=== PATIENT | male | born 1990 | race Caucasian/White ===

== ENCOUNTER 2024-05-15 16:59 | Emergency (ER) | payer MEDICARE, SELFPAY ==
[2024-05-15 17:02] VITALS: BMI 26.5
--- NOTE | 2024-05-15 17:04 | PD.EDOVER ---
ED Overdose RME/HPI General Chief Complaint: Overdose Stated Complaint: OVER DOSE Time Seen by Provider: 05/15/24 17:30 Arrival date/time: 05/15/24 16:59 Limitations: no limitations RME / HPI RME / HPI Narrative: 33 year old male presented to the ED BIBA from home for overdose today. Per medics and PPD, the patient was found in his ex-'s home, in a backroom unconscious for an unknown amount of time. Patient evidently has known history of polysubstance abuse (methamphetamine, cocaine, and alcohol). Per medics, on scene patient was altered, GCS of 5, occasionally having spasms, and only responsive to painful stimuli. NPA airway used and bagged via BVM, saturating 100%. Per medics, patient given 5 rounds of Narcan (two 2mg IN and three 4mg (2xIN 1xIV). State the patient would only momentarily respond to Narcan and return to GCS of 5. No vomiting reported. Per medics 12-lead EKG performed en route and unremarkable, prehospital BS 130, blood pressure 134/68. Per PPD, patient was last seen by ex- 1 week ago. Related Data Home Medications ?Medication ?Instructions ?Recorded ?Confirmed sertraline 50 mg tablet (Zoloft) 50 mg PO HS 05/24/20 06/30/20 allopurinol 300 mg tablet 300 mg BID 06/30/20 06/30/20 buspirone 10 mg tablet 10 mg PO BID 06/30/20 06/30/20 Previous Rx's ?Medication ?Instructions ?Recorded amoxicillin 875 mg-potassium 1 tab PO Q12H #20 tabs 11/07/20 clavulanate 125 mg tablet (Augmentin) ibuprofen 800 mg tablet 800 mg PO Q8H PRN pain #30 tabs 11/07/20 Allergies Allergy/AdvReac Type Severity Reaction Status Date / Time ketorolac AdvReac Severe HEADACHE Verified 05/15/24 17:44 Review of Systems Review of Systems ROS Unobtainable: unobtainable due to mental status Past Medical History Past Medical History NEUROLOGIC: Positive Neurological Disorders and Seizures MUSCULOSKELETAL: Positive Musculoskeletal Disorders, Arthritis and Gout 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) PSYCHO/SOCIAL: Positive Schizophrenia, Recreational Drug Use (COCAINE, THC), Bipolar Disorder, Depression, Anxiety and Behavior Problems OTHER HISTORY: Positive Falls and MRSA Family History FAMILY HISTORY: Positive Family Cancer Social History SMOKING STATUS: Never smoker SUBSTANCE USE: unknown ED Exam General Limitations: Present no limitations General appearance: Present obtunded and other (eyes are rolled back as if having a seizure, no gag reflex ) Head Head exam: Present atraumatic, normocephalic and normal inspection Eye Eye exam: Present PERRL and other (eyes are rolled back as if having a seizure) ENT ENT exam: Present mucous membranes moist and other (No gag reflex) Neck Neck exam: Present normal inspection, full ROM and trachea midline Chest Chest inspection: Present normal inspection and symmetric chest wall rise Respiratory Respiratory exam: Present other (breath sounds slightly decreased ) Cardiovascular Cardiovascular exam: Present tachycardia and normal heart sounds Abdominal Exam Abdominal exam: Present soft and normal bowel sounds exam: Present other (uncircumcised, no edema ) Extremities Exam Extremities exam: Present normal inspection Back Exam Back exam: Present normal inspection Neurological Exam Neurological exam: Present other (obtunded, no gag reflex, eyes are rolled back as if having a seizure, not responding, moving all extremities a small amount. ) Skin Skin exam: Present warm, dry, intact, normal color and rash (patch of rash on abdomen ) Course Course Course Narrative: 1728: Code freeman called overhead, patient moving and not cooperating with staff. Ordered Geodon. 1800: Patient signed out to Dr. Sinclair pending work-up and final disposition. Quality Measures none Orders Category Date Time Status Bedside Blood Glucose Q6HR Care 05/15/24 17:31 Active Solar Energy Specialist NOW Care 05/15/24 17:31 Active Continuous Pulse Oximetry NOW Care 05/15/24 17:31 Active EKG (ED ONLY) *Do not use* NOW Care 05/15/24 17:31 Active Insert IV NOW Care 05/15/24 17:31 Active One-to-one observation NOW Care 05/15/24 17:31 Active EKG (ED Only) Stat Exams 05/15/24 17:31 Ordered Acetaminophen Stat Lab 05/15/24 17:32 Ordered Alcohol, Blood Medical Stat Lab 05/15/24 17:32 Ordered Alcohol, Urine Stat Lab 05/15/24 17:34 Ordered CBC Stat Lab 05/15/24 17:32 Ordered Comprehensive Metabolic Panel Stat Lab 05/15/24 17:32 Ordered Drug Screen,Urine Stat Lab 05/15/24 17:34 Ordered Urinalysis Stat Lab 05/15/24 17:34 Ordered Etomidate Inj [Amidate Inj] Med 05/15/24 16:52 Discontinued 20 mg .ROUTE .STK-MED ONE Etomidate Inj [Amidate Inj] Med 05/15/24 17:09 Discontinued 20 mg .ROUTE .STK-MED ONE LORazepam [Ativan Inj] Med 05/15/24 17:31 Discontinued 1 mg IV X1 ONE Sodium Chloride 0.9% 1000 ml [Ns] 1,000 ml Med 05/15/24 17:31 Active IV X1 Succinylcholine Inj [Anectine Inj] Med 05/15/24 16:52 Discontinued 200 mg .ROUTE .STK-MED ONE Ziprasidone Inj [Geodon Inj] Med 05/15/24 17:45 Discontinued 20 mg IM X1 ONE Oxygen Delivery NOW RT 05/15/24 17:31 Active Vital Signs Vital signs: Vital Signs Temperature 98.2 F 05/15/24 18:08 Pulse Rate 140 H 05/15/24 18:08 Respiratory Rate 20 05/15/24 18:08 Blood Pressure 184/107 H 05/15/24 18:08 Pulse Oximetry (%) 95 05/15/24 18:08 Oxygen Delivery Method Room Air 05/15/24 18:08 Pulse ox is 95% on room air which is adequate. Overdose MDM Narrative MDM Narrative:: Malaika Pablo am scribing for and in the presence of Dr. Edwards. 33 year old male with a known history of polysubstance abuse (methamphetamine, cocaine, and alcohol), who was brought in by EMS following an overdose. On scene, he was found unconscious in his ex-'s home, with a GCS of 5, altered mental status, occasional spasms, and only responsive to painful stimuli. He was administered a total of five rounds of Narcan (2mg IN x2, 4mg IN x2, and 4mg IV x1), which temporarily improved his status, but he continued to return to a GCS of 5. Given the lack of sustained response to Narcan, the overdose may involve a mixed substance ingestion, with a potential for stimulant toxicity or other substances contributing to his presentation. The patient?s prehospital vital signs were stable, with a blood pressure of 134/68, and a blood glucose of 130. A 12-lead EKG performed en route was unremarkable. The patient?s airway was managed with NPA and BVM ventilation, maintaining 100% oxygen saturation. Considering the patient's history of substance abuse, altered mental status, and temporary response to Narcan, the differential diagnosis includes opioid overdose with potential concurrent stimulant use. Further management will include continued monitoring, repeat Narcan administration as needed, and consideration of additional toxicology screening. Given his altered mental status, the patient will require close observation for further deterioration and any signs of withdrawal or additional complications. Patient data External records reviewed:: [facility] previous records (I reviewed ED visit on 12/13/2022 for cocaine abuse ) and EMS form Clinical information provided by:: EMS and law enforcement (PPD) Social determinants that could affect healthcare access:: substance use Patient has the following chronic illnesses:: polysubstance abuse (methamphetamine, cocaine, and alcohol) How is presenting disease/condition affected by chronic disease/condition?: exacerbated by Evaluation data The following diagnostics were reviewed and interpreted by me:: other (specify) (No diagnostics resulted prior to sign out ) Lab and/or radiology exams considered but not ordered:: None Interpretation Summary: N/A Medications / Prescriptions Medications or Prescriptions considered but not ordered:: None Medication administrations:: Medication Administration History Sodium Chloride (Ns) 1,000 mls @ 999 mls/hr IV X1 ONE Stop: 05/15/24 18:31 Last Admin: 05/15/24 18:15 Dose: 999 mls/hr Documented By: DILLAN Discontinued Medications Etomidate (Etomidate Inj 2 Mg/Ml Vial 10 Ml) Confirm Administered Dose 20 mg .ROUTE .STK-MED ONE Stop: 05/15/24 16:53 Last Admin: 05/15/24 17:48 Dose: 20 mg Documented By: DILLAN Etomidate (Etomidate Inj 2 Mg/Ml Vial 10 Ml) Confirm Administered Dose 20 mg .ROUTE .STK-MED ONE Stop: 05/15/24 17:10 Last Admin: 05/15/24 17:48 Dose: 20 mg Documented By: DILLAN Lorazepam (Lorazepam 2 Mg/Ml Vial) 1 mg IV X1 ONE Stop: 05/15/24 17:32 Succinylcholine Chloride (Succinylcholine Inj 20 Mg/Ml Vial 10 Ml) Confirm Administered Dose 200 mg .ROUTE .STK-MED ONE Stop: 05/15/24 16:53 Last Admin: 05/15/24 17:48 Dose: 200 mg Documented By: DILLAN Ziprasidone (Ziprasidone Inj 20 Mg/Ml Vial (Non-Formulary)) 20 mg IM X1 ONE Stop: 05/15/24 17:46 Last Admin: 05/15/24 17:51 Dose: 20 mg Documented By: DILLAN See above Consultations Consultation(s) initiated? (list below): No Diagnosis Overdose Differential Diagnosis: cocaine intoxication, suicide attempt by multiple drug overdose, drug overdose and other (methamphetamine abuse ) Most likely diagnosis given after review of the tests above:: Overdose Admission Indicated Admission indicated?: not indicated Explain why admission is indicated or not indicated:: Patient signed out to Dr. Sinclair pending work up and final disposition. Admission Request Was there a request for admission?: No Disposition Plan Disposition Plan: other (specify) (Signed out to Dr. Sinclair. ) Discharge Plan Prescriptions/Referrals Prescriptions/Med Rec: No Action amoxicillin-pot clavulanate [Augmentin] 875-125 mg tablet 1 tab PO Q12H Qty: 20 0RF ibuprofen 800 mg tablet 800 mg PO Q8H PRN (Reason: pain) Qty: 30 0RF sertraline [Zoloft] 50 mg Tablet 50 mg PO HS buspirone 10 mg tablet 10 mg PO BID Patient Comments: TAKE ONE TABLET BY MOUTH TWICE DAILY allopurinol 300 mg tablet 300 mg BID Patient Comments: TAKE ONE TABLET BY MOUTH TWICE DAILY Referrals: No Primary/Family,Physician [Primary Care Provider] - In 1 week Problem List Clinical Impression: Drug overdose Patient/Caregiver Discharge Instructions Print Language: Maori
--- NOTE | 2024-05-15 17:31 | EKG_ITS ---
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
[2024-05-15] MEDS: ETOMIDATE INJ 2 MG/ML VIAL 10 ML 15 MG IVP ×2 (17:45→17:55)
[2024-05-15] MEDS: SUCCINYLCHOLINE INJ 20 MG/ML VIAL 10 ML 80 MG IV (17:45)
[2024-05-15] MEDS: ZIPRASIDONE INJ 20 MG/ML VIAL (NON-FORMULARY) IM (17:51)
[2024-05-15 18:08] VITALS: BP 184/107; PULSE 140; RESP 20; TEMP 36.8; O2SAT 95
[2024-05-15] MEDS: SODIUM CHLORIDE 0.9% 1000 ML 1,000 ML 999 ML IV ×2 (18:15→19:49)
--- NOTE | 2024-05-15 18:15 | PD.EDADDENDU ---
Emergency Room Addendum Addendum Narrative: 1814: Care assumed from Dr. Edwards, the previous shift emergency physician. Past medical, surgical, social and family history reviewed. Vitals and home medications reviewed. Results and treatment plan discussed. I will assume the care of the patient at this time and will follow the patient, pending work-up. Please refer to the emergency department record for history and examination from initial visit. 183: Per PPD, they were summoned on scene due to a possible overdose. Family on scene took pictures of how they found the patient prior to moving him out of the bedroom. PPD states the patient has laying off the mattress [facility] with his hands somewhat wrapped behind his back. They found a small empty container in his pocket, but they are not sure what was in it. Patient states he went to go lay down after taking a shower and does not remember what happened after. He endorses using cocaine today. He reports having left knee pain and diffuse back pain. On exam, patient has erythema overlying the left patella. Work-up is pending at this time. 185: Blood pressure is 124/102 with a HR of 87. Patient is resting comfortably at this time. CXR shows normal cardiac silhouette, normal sharp diaphragmatic edge, no infiltrates, normal costophrenic angles, according to my interpretation. EKG done at 181, NSR, rate of 95, normal axis, no ectopy, no acute ischemia, according to my interpretation. WBC count is normal, HnH is 17.9/50.5, PT and INR are normal, ABG is normal, Ammonia is normal at 13, Blood Alcohol is negative, UDS is positive for cocaine, according to my interpretation. At 1730, I was notified that our CT machine is down. Patient will be transferred by ambulance across the street where there is another CT machine. I had asked our biomedical electronics technician to call administration and go on diversion and he said no. CT head and cervical spine scans were ordered at 183 and are pending. 0111: Patient's symptoms have resolved. Patient is stable to be discharged. RADIOLOGY RESULTS: [facility] Preliminary Report Draft Patient: JENNIFER GARCIA [facility]. Record#: [id number] Birthdate: 1990 Age/Sex: 33 / M Location: [facility] Attending Dr: Ordering Physician: Date of Service: Procedure(s): Accession Number(s): cc: ~ CT scan of the head without intravenous contrast (axial sections with sagittal and coronal reformats). May 15, 2024 at 2347 hours Clinical History: Altered mental status Comparison: No prior study is available for comparison. Findings: No evidence of intracranial hemorrhage, mass effect or midline shift. The ventricles and CSF spaces are unremarkable. The calvarium is unremarkable. There is moderate mucosal thickening in the both ethmoid sinus. The mastoid air cells and the other visualized paranasal sinuses are clear. Impression: No evidence of intracranial hemorrhage, mass effect or midline shift. Other findings as described above. Report Electronically Signed By: Chago Kuhn 05/16/2024 12:33:29 AM [facility] Preliminary Report Draft Patient: JENNIFER GARCIA. Record#: [id number] Birthdate: 1990 Age/Sex: 33 / M Location: [facility] Attending Dr: Ordering Physician: Date of Service: Procedure(s): Accession Number(s): cc: ~ CT scan of the cervical spine without intravenous contrast (axial sections with sagittal and coronal reformats). May 15, 2024 at 2343 hours Clinical History: Altered mental status. Comparison: No prior study is available for comparison. Findings: There is no fracture or traumatic subluxation. There is straightening of the cervical lordosis, which may be due to muscle spasm or patient position. The prevertebral soft tissues are unremarkable. Impression: No evidence of fracture or traumatic subluxation. Report Electronically Signed By: Chago Kuhn 05/16/2024 12:34:52 AM
[2024-05-15] MEDS: LORazepam 2 MG/ML VIAL 1 MG IV (18:20)
--- NOTE | 2024-05-15 18:39 | XR_ITS ---
Examination: CT cervical spine without contrast 2-D sagittal reconstructions 2-D coronal reconstructions 3-D reconstructions. Exam date and time:May 15, 2024 1143 hours INDICATIONS: Altered mental status with neck pain today CTDI:vol (mGy) 13.5 DLP: (mGycm) 321 Technique: Multiple 2 mm axial sections of the cervical spine have been obtained. The coronal and sagittal reconstructions have been obtained. 3-D reconstructions have been obtained. Low dose protocols were performed. One or more of the following dose reduction techniques were used; automated exposure control, adjustment of the mA and/or KV according to patient size, use of iterative reconstruction technique. Findings: Axial sections demonstrate intact base of the skull. C1 exhibit satisfactory relationship to the odontoid. No acute cervical vertebral body fracture seen. Alignment posterior spinous processes satisfactory. Impression: No acute cervical fracture.
--- NOTE | 2024-05-15 18:42 | XR_ITS ---
Examination: CT brain head without contrast. 2-D sagittal coronal reconstructions Date and time of exam:May 15, 2024 1147 hours INDICATIONS: Onset dizziness headaches today CTDI: vol (mGy):49.5 DLP: (mGycm):925 Technique: Multiple CT axial sections of the brain have been obtained, 5 mm slice thickness. Contrast has not been administered. 2-D sagittal, coronal reconstructions have been obtained Low dose protocols were performed. One or more of the following dose reduction techniques were used; automated exposure control, adjustment of the mA and/or KV according to patient size, use of iterative reconstruction technique. Findings: No significant ventricular enlargement. Intra-axial or extra-axial hemorrhage density is not seen. No mass effect or midline shift Basal cisterns are not remarkable. Fourth ventricle is midline. Cranial vault intact. Significant ethmoid maxillary antral sinusitis Impression: Negative for acute hemorrhage, mass effect or midline shift Advise clinical correlation follow-up accordingly
[2024-05-15 18:43] LABS: Basophils % (Auto) 1 % (0-2.5); Eosinophils # (Auto) 0.1 Thou/mm3 (0.0-0.5); Eosinophils % (Auto) 1 % (0-10); Hematocrit 50.5 % (41.0-53.0); Hemoglobin 17.9 g/dL (13.5-16.0); Immature Granulocytes % (Auto) 0 % (0-0); Immature Granulocytes Auto 0.03 Thou/mm3 (0.00-0.00); Lymphocytes % (Auto) 11 % (10-50); Mean Corpuscular HGB Conc 35.4 g/dl (31.0-37.0); Mean Corpuscular Hemoglobin 28.8 pg (25.0-35.0); Mean Corpuscular Volume 81 fL (80-100); Monocytes # (Auto) 0.4 Thou/mm3 (0.0-0.8); Monocytes % (Auto) 5 % (0-12); Neutrophils # (Auto) 7.1 Thou/mm3 (1.8-7.7); Neutrophils % (Auto) 82 % (37-80); Nucleated Red Blood Cell % 0 /100 WBC (0); Platelet Count 325 Thou/mm3 (140-440); RDW Standard Deviation 36.4 fL (35.1-43.9); Red Blood Count 6.21 Miln/mm3 (4.50-5.90); White Blood Count 8.7 Thou/mm3 (3.8-10.6)
--- NOTE | 2024-05-15 18:45 | XR_ITS ---
EXAMINATION: AP chest single view TECHNIQUE: AP portable upright chest single view Exam date and time: May 15, 2024 1856 hours Comparison December 13, 2022 INDICATIONS: Altered mental status, coughing today FINDINGS: Normal heart size Suspicious for early pneumonia right base Intact osseous structures. IMPRESSION: Suspicious for early pneumonia right base, clinical correlation advised.
[2024-05-15 18:48] VITALS: BP 124/102; PULSE 88; RESP 17; O2SAT 97
[2024-05-15 19:02] LABS: Partial Thromboplastin Time 23.9 Seconds (22.0-36.0)
[2024-05-15 19:12] VITALS: PULSE 89
[2024-05-15 19:26] LABS: Ammonia 13 uMol/L (11-32)
[2024-05-15 19:31] VITALS: PULSE 81; RESP 13; RESP 93
[2024-05-15 19:32] LABS: Base Excess 1 (-3-3); HCO3 26 mEq/L (20-26); Inspired Oxygen, FIO2 21 %; O2 Saturation 95 % (91-98); PCO2 44 mmHg (32.0-48.0); PO2 74 mmHg (83-108); pH, Arterial 7.39 (7.35-7.45)
[2024-05-15 19:34] LABS: Allen Test Performed/OK; Puncture Site Right Radial
--- NOTE | 2024-05-15 19:46 | PC.NURSE ---
Charge nurse Rhys KIMBROUGH aware that patient has a order for a one to one. Per Rhys RN patient does not need a sitter at this time.
[2024-05-15 20:43] LABS: Acetaminophen 7.3 mcg/mL (10.0-20.0); Alanine Aminotransferase 23 U/L (10-49); Albumin, Serum 5.1 gm/dL (3.5-5.0); Albumin/Globulin Ratio 1.8 (1.2-2.2); Alcohol, Blood Medical < 3.0 mg/dL (0-10.0); Alkaline Phosphatase 123 U/L (46-116); Anion Gap 12 (7-16); Aspartate Amino Transferase 39 U/L (0-34); BUN/Creatinine Ratio 9 Ratio (12-20); Bilirubin,Total 2.3 mg/dL (0.3-1.2); Blood Urea Nitrogen 10 mg/dL (9-23); Calcium 10.1 mg/dL (8.3-10.6); Calcium (Corrected) 10.1 mg/dL (8.5-10.1); Carbon Dioxide 26.6 mMol/L (20.0-31.0); Chloride 99 mMol/L (98-107); Creatinine (Component) 1.1 mg/dL (0.6-1.3); Estimated Creatinine Clearance 78.3 mL/min (>60); Free T4 (Free Thyroxine) 1.57 ng/dL (0.89-1.76); Globulin 2.8 gm/dL (2.3-3.5); Glucose 141 mg/dL (74-106); Magnesium 2.1 mg/dL (1.6-2.6); Osmolality,Calculated 276 (275-295); Potassium 3.4 mMol/L (3.4-5.1); Salicylate < 3.0 mg/dL; Sodium 138 mMol/L (136-145); Thyroid Stimulating Hormone 0.63 uIU/mL (0.55-4.78); Total Protein 7.9 gm/dL (5.7-8.2); Troponin I < 0.020 ng/mL (0.0-0.045); eGFR > 60 See Note
[2024-05-15 21:55] LABS: Collection Type, Urine Catheter; Squamous Epithelial Cell,Urine 0 /hpf (0-5)
[2024-05-15 22:24] VITALS: BP 93/60; PULSE 76; RESP 18; TEMP 37.1; O2SAT 95
[2024-05-15 22:39] LABS: Bilirubin,Urine Negative (Negative); Blood,Urine Negative (Negative); Clarity,Urine Clear (Clear/Hazy); Color,Urine Lt-Yellow (Lt Yel-Yel); Glucose, Urine Negative (Negative); Ketones,Urine Trace (Negative); Leukocyte Esterase,Urine Negative (Negative); Nitrite,Urine Negative (Negative); PH,Urine 6.5 (5.0-7.0); Protein,Urine Negative (Neg - Trace); RBC,Urine 1 /hpf (0-3); Specific Gravity,Urine 1.011 (1.001-1.035); Urobilinogen,Urine Negative mg/dL (0.0-1.0); WBC,Urine 1 /hpf (0-5)
[2024-05-15 23:07] LABS: Amphetamine/Methamp Scrn,U Negative (Negative); Barbiturate Screen,Urine Negative (Negative); Benzodiazepines Screen,Urine Negative (Negative); Benzoylecgonine Screen, Ur Positive (Negative); Fentanyl Screen,Urine Negative (Negative); Opiate Screen,Urine Negative (Negative); THC Screen,Urine Negative (Negative)
--- NOTE | 2024-05-16 00:34 | PRELIM_ITS ---
CT scan of the head without intravenous contrast (axial sections with sagittal and coronal reformats). May 15, 2024 at 2347 hours Clinical History: Altered mental status Comparison: No prior study is available for comparison. Findings: No evidence of intracranial hemorrhage, mass effect or midline shift. The ventricles and CSF spaces are unremarkable. The calvarium is unremarkable. There is moderate mucosal thickening in the both ethmoid sinus. The mastoid air cells and the other visualized paranasal sinuses are clear. Impression: No evidence of intracranial hemorrhage, mass effect or midline shift. Other findings as described above. Report Electronically Signed By: Chago Kuhn 05/16/2024 12:33:29 AM [EST]
--- NOTE | 2024-05-16 00:35 | PRELIM_ITS ---
CT scan of the cervical spine without intravenous contrast (axial sections with sagittal and coronal reformats). May 15, 2024 at 2343 hours Clinical History: Altered mental status. Comparison: No prior study is available for comparison. Findings: There is no fracture or traumatic subluxation. There is straightening of the cervical lordosis, which may be due to muscle spasm or patient position. The prevertebral soft tissues are unremarkable. Impression: No evidence of fracture or traumatic subluxation. Report Electronically Signed By: Chago Kuhn 05/16/2024 12:34:52 AM [EST]
[2024-05-16] MEDS: ACETAMINOPHEN 500 MG TABLET 1000 MG PO (00:54)
[2024-05-16 00:55] VITALS: BP 115/83; PULSE 99; RESP 16; TEMP 36.7; O2SAT 95
== END 2024-05-16 01:25 | disposition home or self-care (01) ==
PROVIDERS: Family Medicine; Emergency Provider Emergency Medicine
DX: T65.91XA Toxic effect of unspecified substance, accidental (unintentional), initial encounter (principal); M25.562 Pain in left knee; M54.9 Dorsalgia, unspecified; F14.10 Cocaine abuse, uncomplicated; F19.11 Other psychoactive substance abuse, in remission
CPT/HCPCS: 36415; 36600; 70450; 71045; 72125; 80053; 80307; 80320; 80329; 81001; 82140; 82803; 83735; 84439; 84443; 84484; 85025; 85610; 85730; 93005; 96127; 96360; 96361; 96372; 99284; J0330; J2060; J3486; J3490; J7030; A9270; G0480

== ENCOUNTER 2024-05-22 01:15 | Emergency (ER) | payer MEDICARE, MEDICAID, SELFPAY ==
[2024-05-22] VITALS (11 sets, daily range): BP systolic 98–172; BP diastolic 59–92; PULSE 82–155; RESP 12–94; TEMP 36.3–38.9; O2SAT 93–97; BMI 32.2
--- NOTE | 2024-05-22 01:27 | PD.EDPSYCH ---
ED Psych RME/HPI General Chief Complaint: Psychiatric Symptoms Stated Complaint: MENTAL EVALUATION Time Seen by Provider: 05/22/24 01:36 Arrival date/time: 05/22/24 01:15 RME / HPI RME / HPI Narrative: This section includes all my notes and documentations, including HPI, PE, and ED course. Nikolay Buckley MD HPI: 33yo male BIB PPD presents to the ED for on a 5150 hold. Per PPD, patient was in his motel room when he started throwing things out the window and was running around completely naked. They state the patient hasn't been able to answer questions while in their custody and were concerned for his wellbeing. So they placed him on a psychiatric hold. No other complaints reported. ROS: Can't obtain from the patient due to current clinical condition. Physical Exam: General: Patient is awake but not oriented. No purposeful eye contact. Constant nonpurposeful movements and gyrations. Fever noted. High BP noted. Eyes: Conjunctivae and lids clear. PERRL. EOMI. Neck:? Supple.? No tenderness. Heart: Severe sinus tachycardia noted (150 bpm). Lungs:? No respiratory distress.? Good air movement.? No rhonchi, wheezing, rales.?? Chest:? No tenderness. Abdomen:? Soft and nontender.? Normal bowel sounds.? No distension.? No rebound or guarding.?? Back:? No tenderness.?? Legs:? No clubbing, cyanosis, edema.? Skin:? Warm and dry.??Multiple ecchymoses and skin abrasions scattered diffusely, varying size and shape and age. Neuro:? Cranial Nerves II-XII grossly intact.? No peripheral motor deficits. Musculoskeletal:? All major joints and bones are not tender with no limited ROM.? I reviewed all diagnostic test results. My interpretation of the EKG is sinus tachycardia with no acute ST?T changes. My interpretation of the chest x-ray is no acute findings, official radiology report is pending. Blood tests and urine tests remarkable for WBC 13.5, lactic acid 6.6, CK 3147, and UDS positive for cocaine. COVID/influenza negative. Head CT and cervical spine CT and chest/abdomen/pelvis CT pending. At this point, diagnoses include rhabdomyolysis, AMS, and cocaine intoxication. Treatment included 3 L IV fluid, Zofran, lorazepam 2 mg IV, Haldol 5 mg IV, Haldol 10 mg IM, Benadryl 50 mg IV, Toradol 30 mg IV, Tylenol 1000 mg IV, metoprolol 5 mg IV, and Rocephin 1 g IV. Nikolay Buckley MD Related Data Home Medications ?Medication ?Instructions ?Recorded ?Confirmed sertraline 50 mg tablet (Zoloft) 50 mg PO HS 05/24/20 06/30/20 allopurinol 300 mg tablet 300 mg BID 06/30/20 06/30/20 buspirone 10 mg tablet 10 mg PO BID 06/30/20 06/30/20 Previous Rx's ?Medication ?Instructions ?Recorded amoxicillin 875 mg-potassium 1 tab PO Q12H #20 tabs 11/07/20 clavulanate 125 mg tablet (Augmentin) ibuprofen 800 mg tablet 800 mg PO Q8H PRN pain #30 tabs 11/07/20 Allergies Allergy/AdvReac Type Severity Reaction Status Date / Time ketorolac AdvReac Severe HEADACHE Verified 05/15/24 17:44 Review of Systems Review of Systems Systems Reviewed: All systems reviewed, normal except as documented Past Medical History Past Medical History NEUROLOGIC: Positive Neurological Disorders and Seizures; Negative Epilepsy CARDIAC: Negative Cardiac Disorders or Congestive Heart Failure RESPIRATORY: Negative Chronic Obstructive Pulmonary Disease (COPD) or Asthma GASTROINTESTINAL: Negative Gastrointestinal Disorders GENITOURINARY: Negative Genitourinary Disorders or Renal Disease MUSCULOSKELETAL: Positive Musculoskeletal Disorders, Arthritis and Gout ENT: Positive Blind ENDOCRINE: Negative Endocrine Disorders, Diabetes Mellitus Type 1 or Diabetes Mellitus Type 2 HEMATOLOGIC: Negative Blood Disorders or Sickle Cell Disease PSYCHO/SOCIAL: Positive Schizophrenia, Recreational Drug Use, Bipolar Disorder, Depression, Anxiety and Behavior Problems OTHER HISTORY: Positive Falls and MRSA; Negative Blood Transfusions Family History FAMILY HISTORY: Positive Family Cancer Social History SMOKING STATUS: Never smoker SUBSTANCE USE: unknown ED Exam Narrative Physical exam: As noted in HPI. Course Course Course Narrative: CXR is ordered for determining the etiology of AMS. Quality Measures none Orders Category Date Time Status 4 HR Behavioral Restraints Q15M Care 05/22/24 03:16 Active 1799 [1799 Psychiatric Hold] NOW Care 05/22/24 01:45 Ordered Bedside COVID-19 Antigen Test NOW Care 05/22/24 01:29 Active Bedside Influenza A&B Antigen Test NOW Care 05/22/24 01:29 Completed EKG (ED ONLY) *Do not use* NOW Care 05/22/24 01:33 Completed Saline [Insert IV] NOW Care 05/22/24 01:29 Active Straight [In and Out Catheter] X1 Care 05/22/24 01:[address] cervical spine wo con Stat Exams 05/22/24 01:[address] chest abdomen pelvis wo Stat Exams 05/22/24 01:[address] head/brain wo con Stat Exams 05/22/24 01:34 Ordered EKG (ED Only) Stat Exams 05/22/24 01:33 Draft XR chest 1V portable Stat Exams 05/22/24 01:33 Taken ABG [Arterial Blood Gas] Stat Lab 05/22/24 01:34 Ordered Acetaminophen Stat Lab 05/22/24 01:46 Completed Alcohol, Blood Medical Stat Lab 05/22/24 01:46 Completed Ammonia Stat Lab 05/22/24 01:46 Completed Amylase Stat Lab 05/22/24 01:46 Completed BNP [B-Type Natriuretic Peptide] Stat Lab 05/22/24 01:46 Completed Bilirubin,Direct Stat Lab 05/22/24 01:46 Completed Blood Culture (Lab) Stat Lab 05/22/24 02:20 Received CBC Stat Lab 05/22/24 01:46 Completed CK [Creatine Kinase] Stat Lab 05/22/24 01:46 Completed CMP [Comprehensive Metabolic Panel] Stat Lab 05/22/24 01:46 Completed CRP [C-Reactive Protein] Stat Lab 05/22/24 01:46 Completed D-Dimer Stat Lab 05/22/24 01:46 Completed Drug Screen,Urine Stat Lab 05/22/24 01:42 Completed ESR [Sed Rate (ESR)] Stat Lab 05/22/24 01:46 Completed Free T4 (Free Thyroxine) Stat Lab 05/22/24 01:46 Completed Lactate (Lactic Acid) Stat Lab 05/22/24 01:46 Completed Lactic Acid, 3 HR Stat Lab 05/22/24 04:49 Ordered Lipase Stat Lab 05/22/24 01:46 Completed Magnesium Stat Lab 05/22/24 01:46 Completed PT [Prothrombin Time with INR] Stat Lab 05/22/24 01:46 Completed PTT [Partial Thromboplastin Time] Stat Lab 05/22/24 01:46 Completed Procalcitonin Stat Lab 05/22/24 01:46 Completed Salicylate Stat Lab 05/22/24 01:46 Completed TSH [Thyroid Stimulating Hormone] Stat Lab 05/22/24 01:46 Completed Troponin I Stat Lab 05/22/24 01:46 Completed UA, C/S IF [Urinalysis, C/S if Indicated] Stat Lab 05/22/24 01:42 Completed Acetaminophen Ivpb [Ofirmev Inj] Med 05/22/24 01:35 Discontinued 1,000 mg in 100 ml IV X1 DiphenhydrAMINE INJ [Benadryl Inj] Med 05/22/24 01:29 Discontinued 50 mg IV X1 STA Haloperidol Lactate [Haldol Inj] Med 05/22/24 01:31 Discontinued 10 mg IM X1 ONE Haloperidol Lactate [Haldol Inj] Med 05/22/24 01:29 Discontinued 5 mg IV X1 ONE Ketorolac Inj [Toradol Inj] Med 05/22/24 01:35 Discontinued 30 mg IVP X1 ONE LORazepam [Ativan Inj] Med 05/22/24 01:29 Discontinued 2 mg IVP X1 ONE Metoprolol Tartrate Inj [Lopressor Inj] Med 05/22/24 01:34 Discontinued 5 mg IVP X1 ONE Ondansetron Inj [Zofran Inj] Med 05/22/24 01:31 Discontinued 4 mg IV X1 ONE Sodium Chloride 0.9% 1000 ml [Ns] 1,000 ml Med 05/22/24 01:31 Discontinued IV 999 mls/hr Sodium Chloride 0.9% 1000 ml [Ns] 1,000 ml Med 05/22/24 01:32 Discontinued IV 999 mls/hr Sodium Chloride 0.9% 1000 ml [Ns] 1,000 ml Med 05/22/24 01:32 Discontinued IV 999 mls/hr cefTRIAXone [Rocephin] 1,000 mg Med 05/22/24 01:33 Discontinued SODIUM CHLORIDE 0.9% (Popper) [Ns 0.9% (P)] 50 ml IV X1 Vital Signs Vital signs: Vital Signs Temperature 102.0 F H 05/22/24 01:15 Pulse Rate 155 H 05/22/24 01:15 Respiratory Rate 22 H 05/22/24 01:15 Blood Pressure 172/92 H 05/22/24 01:15 Pulse Oximetry (%) 95 05/22/24 01:15 Oxygen Delivery Method Room Air 05/22/24 01:15 Psych MDM Narrative MDM Narrative:: Scribe Attestation: 05/22/24 - Kirsten Pablo am scribing for and in the presence of Dr. Buckley. Patient data External records reviewed:: [facility] previous records (Per chart review, patient was seen here on 05/15/24 for altered mental status.) Clinical information provided by:: law enforcement Social determinants that could affect healthcare access:: substance use (history of cocaine use) Patient has the following chronic illnesses:: schizophrenia, bipolar disorder How is presenting disease/condition affected by chronic disease/condition?: caused by Evaluation data The following diagnostics were reviewed and interpreted by me:: lab results, radiology exam(s) and EKG tracing(s) Lab and/or radiology exams considered but not ordered:: none Interpretation Summary: rhabdomyolysis, AMS, and cocaine intoxication Medications / Prescriptions Medications or Prescriptions considered but not ordered:: none Medication administrations:: Medication Administration History Discontinued Medications Diphenhydramine HCl (Diphenhydramine Inj 50 Mg/Ml Vial) 50 mg IV X1 STA Stop: 05/22/24 01:30 Last Admin: 05/22/24 01:49 Dose: 50 mg Documented By: RB Haloperidol Lactate (Haloperidol Lact Inj 5 Mg/Ml Vial) 5 mg IV X1 ONE Stop: 05/22/24 01:30 Last Admin: 05/22/24 01:54 Dose: 5 mg Documented By: RB Haloperidol Lactate (Haloperidol Lact Inj 5 Mg/Ml Vial) 10 mg IM X1 ONE Stop: 05/22/24 01:32 Last Admin: 05/22/24 01:52 Dose: 10 mg Documented By: RB Sodium Chloride (Ns) 1,000 mls @ 999 mls/hr IV .Q1H1M ONE Stop: 05/22/24 02:31 Last Infusion: 05/22/24 03:17 Dose: Infused Documented By: Admin: 05/22/24 02:16 Dose: 999 mls/hr Documented By: RB Sodium Chloride (Ns) 1,000 mls @ 999 mls/hr IV .Q1H1M ONE Stop: 05/22/24 02:32 Last Admin: 05/22/24 03:50 Dose: 999 mls/hr Documented By: RB Sodium Chloride (Ns) 1,000 mls @ 999 mls/hr IV .Q1H1M ONE Stop: 05/22/24 02:32 Last Admin: 05/22/24 04:49 Dose: 999 mls/hr Documented By: RB Ceftriaxone Sodium 1,000 mg/ (Sodium Chloride) 50 mls @ 100 mls/hr IV X1 ONE Stop: 05/22/24 02:02 Last Infusion: 05/22/24 02:46 Dose: Infused Documented By: Admin: 05/22/24 02:16 Dose: 100 mls/hr Documented By: RB Acetaminophen (Ofirmev Inj) 1,000 mg in 100 mls @ 250 mls/hr IV X1 ONE Stop: 05/22/24 01:58 Last Infusion: 05/22/24 02:48 Dose: Infused Documented By: Admin: 05/22/24 02:24 Dose: 250 mls/hr Documented By: RB Ketorolac Tromethamine (Ketorolac Inj 30 Mg/Ml Vial) 30 mg IVP X1 ONE Stop: 05/22/24 01:36 Lorazepam (Lorazepam 2 Mg/Ml Vial) 2 mg IVP X1 ONE Stop: 05/22/24 01:30 Last Admin: 05/22/24 01:49 Dose: 2 mg Documented By: RB Metoprolol Tartrate (Metoprolol Tartrate Inj 1 Mg/Ml Amp 5 Ml) 5 mg IVP X1 ONE Stop: 05/22/24 01:35 Ondansetron HCl (Ondansetron Inj 2 Mg/Ml Inj 2 Ml) 4 mg IV X1 ONE; Protocol Stop: 05/22/24 01:32 Treatment included 3 L IV fluid, Zofran, lorazepam 2 mg IV, Haldol 5 mg IV, Haldol 10 mg IM, Benadryl 50 mg IV, Toradol 30 mg IV, Tylenol 1000 mg IV, metoprolol 5 mg IV, and Rocephin 1 g IV. Consultations Consultation(s) initiated? (list below): No Diagnosis Psych Differential Diagnosis: acute psychosis, chronic schizophrenia, suicidal ideation, bipolar disorder, depression, drug-induced psychotic disorder and acute anxiety Most likely diagnosis given after review of the tests above:: rhabdomyolysis, AMS, and cocaine intoxication Admission Indicated Admission indicated?: not indicated Explain why admission is indicated or not indicated:: Complete diagnostics not completed. Admission Request Was there a request for admission?: No Disposition Plan Disposition Plan: other (specify) (Care of the patient was transferred to Dr. BECKETT.) Critical Care Time Critical Care Time Critical Care Time: Yes Total Critical Care Time (min.): 42 Attestation: Due to a high probability of clinically significant, life threatening deterioration, the patient required my highest level of preparedness to intervene emergently and I personally spent this critical care time directly and personally managing the patient. This critical care time included obtaining a history; examining the patient; ordering and review of studies; arranging urgent treatment with development of a management plan; evaluation of patient's response to treatment; frequent reassessment; and discussions with family and other providers. It was exclusive of separately billable procedures and treating other patients and teaching time. Nikolay Buckley MD Discharge Plan Prescriptions/Referrals Prescriptions/Med Rec: No Action amoxicillin-pot clavulanate [Augmentin] 875-125 mg tablet 1 tab PO Q12H Qty: 20 0RF ibuprofen 800 mg tablet 800 mg PO Q8H PRN (Reason: pain) Qty: 30 0RF sertraline [Zoloft] 50 mg Tablet 50 mg PO HS buspirone 10 mg tablet 10 mg PO BID Patient Comments: TAKE ONE TABLET BY MOUTH TWICE DAILY allopurinol 300 mg tablet 300 mg BID Patient Comments: TAKE ONE TABLET BY MOUTH TWICE DAILY Referrals: No Primary/Family,Physician [Primary Care Provider] - In 1 week Problem List Clinical Impression: Rhabdomyolysis, AMS (altered mental status), Cocaine abuse with intoxication Patient/Caregiver Discharge Instructions Print Language: Hong [place]er
--- NOTE | 2024-05-22 01:29 | PC.NURSE ---
0129 PT presents via with PPD from Hotel room for c/o AMS on 5150 hold for harm to himself. PT GCS 13, in acute distress noted pt hand cuffed and unable to hold conversation very restless, blood drawn from IV that I placed with the help of staff and PPD. PT placed on cardiac rehab nurse, BP cuff and continuous pulse ox. Pt is dressed only in underwear with multiple bruises in various stages of healing noted on arrival. Pt confused at this time, pt, resp are even and unlabored, skin hot to touch and dry, pt moving all extremities. Pt in bilateral wrist restraints and 1:1 sitter at bedside. Will continue to monitor.
--- NOTE | 2024-05-22 01:33 | XR_ITS ---
Examination: AP chest single view Technique one AP portable supine chest single view Exam date and time: May 22, 2024 at 0217 hrs. Indications: Shortness of breath today Findings: Normal heart size. Lungs are clear. The osseous structures are intact Impression: No active disease
--- NOTE | 2024-05-22 01:33 | EKG_ITS ---
[facility] Test Date: 2024-05-22 Pat Name: JENNIFER GARCIA Department: Room: - Gender: Male [employer]: : 1990 Requested By: Nikolay Harden Order Number: [id number] Reading MD: Nikolay Harden Measurements Intervals [place] Rate: 111 P: 53 GA: 125 QRS: 25 QRSD: 83 T: -3 QT: 349 QTc: 475 Interpretive Statements SINUS TACHYCARDIA NONSPECIFIC T-WAVE ABNORMALITY ABNORMAL RHYTHM ECG Compared to ECG 05/15/2024 18:17:27 Sinus rhythm no longer present T-wave abnormality still present /store/S0/[id number]/[id number].pdf
--- NOTE | 2024-05-22 01:34 | XR_ITS ---
Examination: CT chest, without intravenous contrast. CT abdomen, without intravenous contrast. CT pelvis, without intravenous contrast. 2-D sagittal and coronal reconstructions. 3-D reconstructions. Date and time of exam:May 22, 2024 at 0242 hrs. Indications: Chest pain abdominal pain today CTDI vol (mgy) 9.09 DLP (MGycm)645 Technique: Multiple CT images, 3.0 mm slice thickness, obtained chest, abdomen, pelvis, with the high-resolution 64 slice scanner.. Sagittal and coronal 2-D reconstructions are obtained. 3-D reconstructions Low dose protocols were performed. One or more of the following dose reduction techniques were used; automated exposure control, adjustment of the mA and/or KV according to patient size, use of iterative reconstruction technique. Findings: Thoracic aorta pulmonary arteries intact on this noncontrast study No paratracheal tracheobronchial or bronchopulmonary adenopathy No pulmonary edema or aspiration pneumonia No liver or splenic lesion No gallstones No pancreatic or adrenal mass No renal or ureteral calculi, no hydronephrosis. Normal appendix No bowel obstruction Urinary bladder intact Normal seminal vesicles No prostatomegaly The osseous structures are intact Impression: No acute process in the chest abdomen or pelvis
--- NOTE | 2024-05-22 01:34 | XR_ITS ---
Examination: CT brain head without contrast. 2-D sagittal coronal reconstructions Date and time of exam:May 22, 2024 0238 hrs. Comparison May 15, 2024 Indications: Altered mental status today CTDI: vol (mGy):51 DLP: (mGycm):971 Technique: Multiple CT axial sections of the brain have been obtained, 5 mm slice thickness. Contrast has not been administered. 2-D sagittal, coronal reconstructions have been obtained Low dose protocols were performed. One or more of the following dose reduction techniques were used; automated exposure control, adjustment of the mA and/or KV according to patient size, use of iterative reconstruction technique. Findings: No significant ventricular enlargement. Intra-axial or extra-axial hemorrhage density is not seen. No mass effect or midline shift Basal cisterns are not remarkable. Fourth ventricle is midline. Cranial vault intact. Impression: Negative for acute hemorrhage, mass effect or midline shift
--- NOTE | 2024-05-22 01:34 | XR_ITS ---
Examination: CT cervical spine without contrast 2-D sagittal reconstructions 2-D coronal reconstructions 3-D reconstructions. Exam date and time:May 22, 2024 0238 hrs. Indications: Altered mental status with neck pain today CTDI:vol (mGy) 8.68 DLP: (mGycm) 170 Technique: Multiple 2 mm axial sections of the cervical spine have been obtained. The coronal and sagittal reconstructions have been obtained. 3-D reconstructions have been obtained. Low dose protocols were performed. One or more of the following dose reduction techniques were used; automated exposure control, adjustment of the mA and/or KV according to patient size, use of iterative reconstruction technique. Findings: Axial sections demonstrate intact base of the skull. C1 exhibit satisfactory relationship to the odontoid. No acute cervical vertebral body fracture seen. Alignment posterior spinous processes satisfactory. Impression: No acute cervical fracture.
[2024-05-22] MEDS: LORazepam 2 MG/ML VIAL IVP (01:49)
[2024-05-22] MEDS: DiphenhydrAMINE INJ 50 MG/ML VIAL IV (01:49)
[2024-05-22] MEDS: HALOPERIDOL LACT INJ 5 MG/ML VIAL 10 MG IM (01:52)
[2024-05-22] MEDS: HALOPERIDOL LACT INJ 5 MG/ML VIAL IV (01:54)
[2024-05-22 01:57] LABS: Lactate (Lactic Acid) 6.6 mMol/L (0.4-2.0)
[2024-05-22 02:04] LABS: Basophils # (Auto) 0.1 Thou/mm3 (0.0-0.2); Basophils % (Auto) 1 % (0-2.5); Eosinophils % (Auto) 0 % (0-10); Hematocrit 44.3 % (41.0-53.0); Hemoglobin 15.9 g/dL (13.5-16.0); Immature Granulocytes % (Auto) 0 % (0-0); Immature Granulocytes Auto 0.04 Thou/mm3 (0.00-0.00); Lymphocytes # (Auto) 1.5 Thou/mm3 (1.0-4.8); Lymphocytes % (Auto) 11 % (10-50); Mean Corpuscular HGB Conc 35.9 g/dl (31.0-37.0); Mean Corpuscular Hemoglobin 28.9 pg (25.0-35.0); Mean Corpuscular Volume 80 fL (80-100); Monocytes % (Auto) 7 % (0-12); Neutrophils # (Auto) 10.9 Thou/mm3 (1.8-7.7); Neutrophils % (Auto) 81 % (37-80); Nucleated Red Blood Cell % 0 /100 WBC (0); Platelet Count 398 Thou/mm3 (140-440); RDW Standard Deviation 36.2 fL (35.1-43.9); Red Blood Count 5.51 Miln/mm3 (4.50-5.90); White Blood Count 13.5 Thou/mm3 (3.8-10.6)
[2024-05-22 02:09] LABS: Collection Type, Urine Clean Catch; RBC,Urine 0 /hpf (0-3)
[2024-05-22 02:12] LABS: INR 1.1 (0.9-1.3); Partial Thromboplastin Time 21.9 Seconds (22.0-36.0); Prothrombin Time 11.5 Seconds (9.0-12.2)
[2024-05-22 02:16] LABS: Ammonia 28 uMol/L (11-32); Sed Rate (ESR) 7 mm/hr (0-15)
[2024-05-22] MEDS: cefTRIAXone 1,000 MG in SODIUM CHLORIDE 0.9% (Popper) 50 ML 100 MG IV (02:16)
[2024-05-22] MEDS: SODIUM CHLORIDE 0.9% 1000 ML 1,000 ML 999 ML IV ×3 (02:16→04:49)
[2024-05-22 02:21] LABS: D-Dimer 1270 ng/mL (<600)
[2024-05-22] MEDS: ACETAMINOPHEN IVPB 1,000 MG/100 ML VIAL 250 MG IV (02:24)
[2024-05-22 02:41] LABS: Acetaminophen < 2.0 mcg/mL (10.0-20.0); Alanine Aminotransferase 50 U/L (10-49); Albumin, Serum 4.6 gm/dL (3.5-5.0); Albumin/Globulin Ratio 1.7 (1.2-2.2); Alcohol, Blood Medical < 3.0 mg/dL (0-10.0); Alkaline Phosphatase 106 U/L (46-116); Amylase 47 U/L (30-118); Anion Gap 15 (7-16); Aspartate Amino Transferase 68 U/L (0-34); B-Type Natriuretic Peptide < 20 pg/mL (0-100); BUN/Creatinine Ratio 8 Ratio (12-20); Bilirubin,Direct 0.6 mg/dL (0.0-0.3); Bilirubin,Total 1.8 mg/dL (0.3-1.2); Blood Urea Nitrogen 11 mg/dL (9-23); C-Reactive Protein < 0.5 mg/dL (0.0-0.9); Calcium 9.5 mg/dL (8.3-10.6); Calcium (Corrected) 9.5 mg/dL (8.5-10.1); Carbon Dioxide 24.4 mMol/L (20.0-31.0); Chloride 102 mMol/L (98-107); Creatine Kinase 3147 U/L (34-171); Creatinine (Component) 1.3 mg/dL (0.6-1.3); Estimated Creatinine Clearance 69.8 mL/min (>60); Free T4 (Free Thyroxine) 1.58 ng/dL (0.89-1.76); Globulin 2.7 gm/dL (2.3-3.5); Glucose 125 mg/dL (74-106); Lipase 30 U/L (12-53); Magnesium 1.8 mg/dL (1.6-2.6); Osmolality,Calculated 281 (275-295); Potassium 3.4 mMol/L (3.4-5.1); Procalcitonin 0.08 ng/ml (0.0-0.49); Salicylate < 3.0 mg/dL; Sodium 141 mMol/L (136-145); Thyroid Stimulating Hormone 1.52 uIU/mL (0.55-4.78); Total Protein 7.3 gm/dL (5.7-8.2); Troponin I < 0.020 ng/mL (0.0-0.045); eGFR > 60 See Note
[2024-05-22 02:41] LABS: Amphetamine/Methamp Scrn,U Negative (Negative); Barbiturate Screen,Urine Negative (Negative); Benzodiazepines Screen,Urine Negative (Negative); Benzoylecgonine Screen, Ur Positive (Negative); Fentanyl Screen,Urine Negative (Negative); Opiate Screen,Urine Negative (Negative); THC Screen,Urine Negative (Negative)
[2024-05-22 02:43] LABS: Bacteria,Urine Rare; Bilirubin,Urine Negative (Negative); Blood,Urine Negative (Negative); Clarity,Urine Turbid (Clear/Hazy); Color,Urine Yellow (Lt Yel-Yel); Culture Indicated,Urine Not Indicated; Glucose, Urine Negative (Negative); Hyaline Casts,Urine < 1 /hpf (0-1); Ketones,Urine 2+ (Negative); Leukocyte Esterase,Urine Positive (Negative); Nitrite,Urine Negative (Negative); PH,Urine 6.5 (5.0-7.0); Protein,Urine 1+ (Neg - Trace); Specific Gravity,Urine 1.027 (1.001-1.035); Squamous Epithelial Cell,Urine < 1 /hpf (0-5); WBC,Urine 6 /hpf (0-5)
--- NOTE | 2024-05-22 03:10 | PRELIM_ITS ---
CT scan of the head without intravenous contrast (axial sections with sagittal and coronal reformats). May 22, 2024 0238 hours Clinical History: Altered mental status Comparison: No prior study is available for comparison at the time of interpretation. Findings: There is no intracranial hemorrhage, extra-axial collection, mass, mass-effect or midline shift. There is good freeman-white differentiation. There is no CT evidence of acute large vascular territorial infarct. Ventricles are not enlarged or effaced. There is mild paranasal sinus fluid/mucosal thickening. The tympanomastoid cavities are clear. The bony calvarium is intact. Impression: No intracranial hemorrhage, mass-effect or midline shift. No CT evidence of acute large vascular territorial infarct. Report Electronically Signed By: Salvador Barth 05/22/2024 3:09:28 AM [EST]
--- NOTE | 2024-05-22 03:14 | PRELIM_ITS ---
CT scan of the cervical spine without intravenous contrast (axial sections with sagittal and coronal reformats). May 22, 2024 at 0238 hours Clinical History: Neck trauma. Comparison: None currently available for review. Findings: There is no fracture, traumatic subluxation or other acute osseous abnormality of the cervical spine. The prevertebral soft tissues are unremarkable. Metallic density noted within the left neck, possibly representing postsurgical change. Impression: No acute osseous abnormality of the cervical spine. Report Electronically Signed By: Salvador Barth 05/22/2024 3:13:58 AM [EST]
[2024-05-22 04:49] LABS: Reflex Lactate? Y
[2024-05-22 06:17] LABS: Lactic Acid, 3 HR 0.6 mMol/L (0.4-2.0)
--- NOTE | 2024-05-22 07:28 | EDNOTE_ITS ---
Emergency Room Addendum Addendum Narrative: 0600: Care assumed from , the previous shift emergency physician. Past medical, surgical, social and family history reviewed. Vitals and home medications reviewed. Patient was brought in by [facility] today at 01:15 hours and placed on a 5150 hold. I will assume the care of the patient at this time pending medical clearance for mental health evaluation. Please refer to the emergency department record for history and examination from initial visit.?The following addendum documentation note is intended to reflect any pending information, findings, or radiology results not included in the patient?s initial chart. Nursing notes reviewed by me. Vital signs reviewed by me. Amanda medical records reviewed by me. I reviewed ED visit on 05/15/2024 for overdose. 1045: Patient has been medically cleared for mental health evaluation. Patient has been evaluated by our ASW and rescinded the 5150 hold. Reports safety plan was created and can go home. Patient is amenable to discharge. Strict return precautions were outlined. RADIOLOGY Ordering Physician: Nikolay Buckley MD Date of Service: 05/22/24 Procedure(s): CT cervical spine wo [facility] Accession Number(s): [id number] cc: Nikolay Buckley MD; Toan Olvera MD; NO PRIMARY/FAMILY,PHYSICIAN~ Examination: CT cervical spine without contrast 2-D sagittal reconstructions 2-D coronal reconstructions 3-D reconstructions. Exam date and time:May 22, 2024 0238 hrs. Indications: Altered mental status with neck pain today CTDI:vol (mGy) 8.68 DLP: (mGycm) 170 Technique: Multiple 2 mm axial sections of the cervical spine have been obtained. The coronal and sagittal reconstructions have been obtained. 3-D reconstructions have been obtained. Low dose protocols were performed. One or more of the following dose reduction techniques were used; automated exposure control, adjustment of the mA and/or KV according to patient size, use of iterative reconstruction technique. Findings: Axial sections demonstrate intact base of the skull. C1 exhibit satisfactory relationship to the odontoid. No acute cervical vertebral body fracture seen. Alignment posterior spinous processes satisfactory. Impression: No acute cervical fracture. Dictated By:Toan Olvera MD Signed By:<Electronically signed by Toan Olvera MD in OV>05/22/24 0842 Ordering Physician: Nikolay Buckley MD Date of Service: 05/22/24 Procedure(s): CT chest abdomen pelvis wo Accession Number(s): [id number] cc: Nikolay Buckley MD; Toan Olvera MD; NO PRIMARY/FAMILY,PHYSICIAN~ Examination: CT chest, without intravenous contrast. CT abdomen, without intravenous contrast. CT pelvis, without intravenous contrast. 2-D sagittal and coronal reconstructions. 3-D reconstructions. Date and time of exam:May 22, 2024 at 0242 hrs. Indications: Chest pain abdominal pain today CTDI vol (mgy) 9.09 DLP (MGycm)645 Technique: Multiple CT images, 3.0 mm slice thickness, obtained chest, abdomen, pelvis, with the high-resolution 64 slice scanner.. Sagittal and coronal 2-D reconstructions are obtained. 3-D reconstructions Low dose protocols were performed. One or more of the following dose reduction techniques were used; automated exposure control, adjustment of the mA and/or KV according to patient size, use of iterative reconstruction technique. Findings: Thoracic aorta pulmonary arteries intact on this noncontrast study No paratracheal tracheobronchial or bronchopulmonary adenopathy No pulmonary edema or aspiration pneumonia No liver or splenic lesion No gallstones No pancreatic or adrenal mass No renal or ureteral calculi, no hydronephrosis. Normal appendix No bowel obstruction Urinary bladder intact Normal seminal vesicles No prostatomegaly The osseous structures are intact Impression: No acute process in the chest abdomen or pelvis Dictated By:Toan Olvera MD Signed By:<Electronically signed by Toan Olvera MD in OV>05/22/24 0855 Ordering Physician: Nikolay Buckley MD Date of Service: 05/22/24 Procedure(s): CT head/brain wo con Accession Number(s): [id number] cc: Nikolay Buckley MD; Toan Olvera MD; NO PRIMARY/FAMILY,PHYSICIAN~ Examination: CT brain head without contrast. 2-D sagittal coronal reconstructions Date and time of exam:May 22, 2024 0238 hrs. Comparison May 15, 2024 Indications: Altered mental status today CTDI: vol (mGy):51 DLP: (mGycm):971 Technique: Multiple CT axial sections of the brain have been obtained, 5 mm slice thickness. Contrast has not been administered. 2-D sagittal, coronal reconstructions have been obtained Low dose protocols were performed. One or more of the following dose reduction techniques were used; automated exposure control, adjustment of the mA and/or KV according to patient size, use of iterative reconstruction technique. Findings: No significant ventricular enlargement. Intra-axial or extra-axial hemorrhage density is not seen. No mass effect or midline shift Basal cisterns are not remarkable. Fourth ventricle is midline. Cranial vault intact. Impression: Negative for acute hemorrhage, mass effect or midline shift Dictated By:Toan Olvera MD Signed By:<Electronically signed by Toan Olvera MD in OV>05/22/24 0840
--- NOTE | 2024-05-22 08:17 | PC.NURSE ---
report received from nightshift nurse. pt appears withdrawal and tired. requested breakfast. breakfast provided
--- NOTE | 2024-05-22 08:22 | PC.CC ---
Patient is a 64 year-old male who presents to the hospital for a mental health evaluation for suicidal ideations. Patient was placed on a 1799 on 05/22/2024 at 0045. Isael met with patient [id number] to complete assessment. ASW introduced self, role, and reason for assessment. ASW disclosed limits of confidentiality as well. Patient appeared alert and oriented to self, place, and situation. Patient was pleasant; his behavior euthymic; patient made appropriate eye contact throughout assessment. Patient?s thought process was linear and organized. No signs of delusions, paranoid or V/h. Patient reports he was released from [facility] yesterday evening after being on a 30 day hold. Patient expressed he was nervous after being on a hold for so long and began to have suicidal ideations with plan to run on the highway and get his by a diesel truck. ASW explored with patient what has stopped him from his plan. Patient reports he would not want to ruin someone?s life as they would be traumatized. Patient reports he often has suicidal ideations and auditory hallucination. Patient reports Patricia has been taking to him for the past 35 years. Patient stated, ?Patricia calls my name once in a while and tells me to do good.? Patient reports he has a mental health diagnosis of schizoaffective disorder bipolar type. Patient receives outpatient mental health services with [facility] and is seen by Dr. Sprague for psychiatric services. Patient takes psychotropic medications: Trazadone 20mg, Zyprexa 30mg, Prozac 10mg, Gabapentin 3x/day 600mg. Patient informed this television writer he is compliant with all his medications and they are provided by staff at [facility]. At the time of encounter with this television writer the patient is denying suicidal and homicidal ideations; visual and auditory hallucinations. Patient reports he has had 6 suicide attempts in his life time and none have been successful and this is a sign from God that he needs to stay alive. Patient reports he is ready to go back to [facility] and was just anxious about going back yesterday due to the long car ride. Patient reports his coping skills when he is having suicidal ideations are listening to music, reading his books, and his best friend roommate Eagle. Patient reports he knows he can reach out to help and call the Warm Line [phone] or return to the hospital for help. ASW explored with patient if he was open to establishing safety plan and patient reports he is open to safety plan. Patient was low risk on the [place] Screening. Upon clinical consultation with Liz SANTAMARIA the patient does not meet criteria for 5150-Hold. ASW to establish safety plan with patient. ASWElizabeth established safety plan with patient. Patient will be returning back to [place] and staff are to continue to keep his medications locked in a secure area, patient has an appointment tomorrow 05/23/2024 at 4:00pm at [facility] staff to ensure he attends his appointment, patient was provided with [facility] Resource Guide with Warm Line number and advised to return to the hospital if begins to have suicidal ideations. ASW provided update of established discharge of safety plan to Dr. Flores, development coordinator Kris, and bedside KAYLAN Hill.
--- NOTE | 2024-05-22 08:39 | PC.NURSE ---
social insurance specialist evaluating pt
--- NOTE | 2024-05-22 15:36 | PC.NURSE ---
PER NURSE ADVOCATE, PT'S 5150 IS RESCINDED. AWAITING MD TO DO DISCHARGE
--- NOTE | 2024-05-22 15:42 | PC.CC ---
Patient is a 33 year-old male who presents to the hospital on a 5150-hold by [employer]w for Danger to Self, Danger to Others, and Gravely Disabled. ? Isael met with patient [id number] to complete assessment. ASW introduced self, role, and reason for assessment. ASW disclosed limits of confidentiality as well. Patient appeared alert and oriented to self, place, and situation. Patient?s behavior was euthymic; patient speech was normal; made appropriate eye contact; patient was cooperative during assessment. Patient?s thought process was linear and organized. No signs of delusions, paranoid or V/h. Patient reports he does not recall what occurred last night at [employer] and he believed he was asleep. Patient denied suicidal and homicidal ideations, visual and auditory hallucinations. ASW explored with patient what was reported on the 5150-hold by [employer] of him causing a disturbance and having auditory hallucinations. Patient denied these allegations and continues to report he does not recall what happen last night. Patient reports years ago he was diagnosed with Bipolar disorder but is not connected to outpatient mental health services. He states he is connected to probation for a crime he did not commit. At the time of encounter the patient is denying suicidal and homicidal ideations, visual and auditory hallucinations. Patient denied past suicide attempts and being placed on a 5150-hold. Patient?s toxicology reports indicates patient tested positive for Cocaine. Patient reports he has been using cocaine off and on since 2019. Patient?s [place] Screening was Low-Risk and was completed by KAYLAN Rodriguez. ASW inquired of patient if there was anyone this radio script writer could contact for collateral information. Patient denied being able to make contact with anyone. ? ASW made face to face contact again with patient and reattempted to explore the events leading to him being placed on a 5150-hold. Patient reports that he was attempting to get the attention of someone as he could not open the door or windows and the reason why he was unclothed was because he was doing his laundry. ASW discussed his overdose last month which he reports he began not to feel right and went to lay down and does not recall what occurred. Patient denied that a white substance being found in his pocket. Upon clinical consultation with Liz SANTAMARIA the patient?s 5150-hold will be rescinded as patient does not meet criteria for hold. Patient reports he plans to return back to [place] [id number] as this is where he is currently residing and will be following up with his real estate loan officer. ASW discussed a referral to mental health and AOD services with patient. Patient was receptive to referral. Patient reports he does need help with substance use and plans on contacting his real estate loan officer today to obtain a referral for AOD services. This radio script writer provided patient with [facility] Resource Guide and Warm Line number. ASW made an appointment for patient to receive outpatient mental health services at [facility] for May 28, 2024 at 1:00pm with Larissa Perez. ASW provided patient with appropriate weather clothing (shorts, yareli-shirt, and shoes). ? ASW provided update to Dr. Flores and orthotic/prosthetic practitioner Anton of safety plan.
--- NOTE | 2024-05-22 15:52 | PC.NURSE ---
IVL TO RIGHT HAND AND FOREARM REMOVED NOW WITH CATHETERS INTACT. DRESSINGS APPLIED.
== END 2024-05-22 15:55 | disposition home or self-care (01) ==
PROVIDERS: Emergency Provider Emergency Medicine
DX: F14.129 Cocaine abuse with intoxication, unspecified (principal); M62.82 Rhabdomyolysis; F31.9 Bipolar disorder, unspecified; F20.9 Schizophrenia, unspecified; R00.0 Tachycardia, unspecified; Z78.1 Physical restraint status
CPT/HCPCS: 51701; 36415; 36600; 70450; 71045; 71250; 72125; 74176; 80053; 80307; 80320; 80329; 81001; 82140; 82150; 82248; 82550; 82803; 83605; 83690; 83735; 83880; 84145; 84439; 84443; 84484; 85025; 85379; 85610; 85652; 85730; 86140; 87040; 87400; 87811; 90839; 93005; 96127; 96372; 99285; J0131; J0696; J1200; J1630; J2060; J7030; J7050; G0480

== ENCOUNTER 2024-05-25 19:46 | Emergency (ER) | payer MEDICARE, MEDICAID, SELFPAY ==
[2024-05-25 19:49] VITALS: BP 134/83; PULSE 130; RESP 20; TEMP 37; O2SAT 98; BMI 23.0
--- NOTE | 2024-05-25 20:08 | XR_ITS ---
Examination: CT brain head without contrast. 2-D sagittal coronal reconstructions Date and time of exam:May 25, 2024 at 2114 hrs. Indications: Onset altered mental status today CTDI: vol (mGy):97.9 DLP: (mGycm):1746 Technique: Multiple CT axial sections of the brain have been obtained, 5 mm slice thickness. Contrast has not been administered. 2-D sagittal, coronal reconstructions have been obtained Low dose protocols were performed. One or more of the following dose reduction techniques were used; automated exposure control, adjustment of the mA and/or KV according to patient size, use of iterative reconstruction technique. Findings: No significant ventricular enlargement. Intra-axial or extra-axial hemorrhage density is not seen. No mass effect or midline shift Basal cisterns are not remarkable. Fourth ventricle is midline. Cranial vault intact. Study degraded by patient motion Impression: Negative for acute hemorrhage, mass effect or midline shift
[2024-05-25] MEDS: DIAZEPAM INJ 5 MG/ML VIAL 2 ML 10 MG IM (20:14)
[2024-05-25 20:37] LABS: Basophils # (Auto) 0.1 Thou/mm3 (0.0-0.2); Basophils % (Auto) 0 % (0-2.5); Eosinophils # (Auto) 0.4 Thou/mm3 (0.0-0.5); Eosinophils % (Auto) 3 % (0-10); Hematocrit 41.5 % (41.0-53.0); Hemoglobin 14.7 g/dL (13.5-16.0); Immature Granulocytes % (Auto) 0 % (0-0); Immature Granulocytes Auto 0.04 Thou/mm3 (0.00-0.00); Lymphocytes % (Auto) 8 % (10-50); Mean Corpuscular HGB Conc 35.4 g/dl (31.0-37.0); Mean Corpuscular Hemoglobin 29.5 pg (25.0-35.0); Mean Corpuscular Volume 83 fL (80-100); Monocytes # (Auto) 0.9 Thou/mm3 (0.0-0.8); Monocytes % (Auto) 7 % (0-12); Neutrophils # (Auto) 10.3 Thou/mm3 (1.8-7.7); Neutrophils % (Auto) 81 % (37-80); Nucleated Red Blood Cell % 0 /100 WBC (0); Platelet Count 387 Thou/mm3 (140-440); RDW Standard Deviation 39.2 fL (35.1-43.9); Red Blood Count 4.98 Miln/mm3 (4.50-5.90); White Blood Count 12.7 Thou/mm3 (3.8-10.6)
[2024-05-25 20:55] LABS: Alanine Aminotransferase 40 U/L (10-49); Albumin, Serum 4.1 gm/dL (3.5-5.0); Albumin/Globulin Ratio 1.6 (1.2-2.2); Alkaline Phosphatase 110 U/L (46-116); Anion Gap 12 (7-16); Aspartate Amino Transferase 48 U/L (0-34); BUN/Creatinine Ratio 9 Ratio (12-20); Bilirubin,Total 1.3 mg/dL (0.3-1.2); Blood Urea Nitrogen 10 mg/dL (9-23); Chloride 104 mMol/L (98-107); Creatinine (Component) 1.1 mg/dL (0.6-1.3); Estimated Creatinine Clearance 78.3 mL/min (>60); Globulin 2.5 gm/dL (2.3-3.5); Glucose 102 mg/dL (74-106); Osmolality,Calculated 278 (275-295); Potassium 3.2 mMol/L (3.4-5.1); Sodium 140 mMol/L (136-145); Total Protein 6.6 gm/dL (5.7-8.2); eGFR > 60 See Note
--- NOTE | 2024-05-25 21:41 | EDNOTE_ITS ---
ED Medical Clearance RME/HPI General Chief complaint: Medical Clearance Stated complaint: MEDICAL CLEARANCE Time Seen by Provider: 05/25/24 20:00 Arrival date/time: 05/25/24 19:46 Patient presents to the ER under police escort handcuffed with nonverbal and tachycardic with a heart rate greater than 130. For medical clearance secondary to his nonverbal status. Patient is awake alert and nodding yes and no to simple questions but semicombative to interventions or assessment. Over 10 to 15 minutes was able to get an assessment of the patient. Related Information Home Medications ?Medication ?Instructions ?Recorded ?Confirmed sertraline 50 mg tablet (Zoloft) 50 mg PO HS 05/24/20 06/30/20 allopurinol 300 mg tablet 300 mg BID 06/30/20 06/30/20 buspirone 10 mg tablet 10 mg PO BID 06/30/20 Previous Rx's ?Medication ?Instructions ?Recorded amoxicillin 875 mg-potassium 1 tab PO Q12H #20 tabs clavulanate 125 mg tablet (Augmentin) ibuprofen 800 mg tablet 800 mg PO Q8H PRN pain #30 t abs 11/07/20 Allergies Allergy/AdvReac Type Severity Reaction Status Date / Time ketorolac AdvReac Severe HEADACHE Verified 05/25/24 19:49 Review of Systems Review of Systems ROS Unobtainable: unobtainable due to mental status Past Medical History Past Medical History NEUROLOGIC: Positive Neurological Disorders and Seizures; Negative Epilepsy CARDIAC: Negative Cardiac Disorders or Congestive Heart Failure RESPIRATORY: Negative Chronic Obstructive Pulmonary Disease (COPD) or Asthma GASTROINTESTINAL: Negative Gastrointestinal Disorders GENITOURINARY: Negative Genitourinary Disorders or Renal Disease MUSCULOSKELETAL: Positive Musculoskeletal Disorders, Arthritis and Gout ENT: Positive Blind ENDOCRINE: Negative Endocrine Disorders, Diabetes Mellitus Type 1 or Diabetes Mellitus Type 2 HEMATOLOGIC: Negative Blood Disorders or Sickle Cell Disease PSYCHO/SOCIAL: Positive Schizophrenia, Recreational Drug Use, Bipolar Disorder, Depression, Anxiety and Behavior Problems OTHER HISTORY: Positive Falls and MRSA; Negative Blood Transfusions Family History FAMILY HISTORY: Positive Family Cancer Social History SMOKING STATUS: Former smoker SUBSTANCE USE: unknown ED Exam Narrative Physical exam: [General: Not in any acute distress Head normocephalic HEENT: Within acceptable limits Neck is supple nontender Chest equal chest rise nontender to palpation Respiratory: Clear to auscultation no wheezes crackles or rubs CV: Rate rhythm is regular no murmurs rubs or clicks Abdomen is distended secondary to body habitus soft nontender no masses positive bowel sounds all 4 quadrants Back: No CVA tenderness no spinous process tenderness from cervical spine thoracic and lumbar spine Skin: Intact no petechiae rash induration ulceration or crepitus Extremities: Moving all extremity against resistance cap refill less than 2 seconds neurosensory intact Neuro: Awake alert oriented x3 Glascow coma 15 no focal deficits] Course Quality Measures VTE prophylaxis Orders Category Date Time Status CT head/brain wo con Stat Exams 05/25/24 20:08 Taken CBC Stat Lab 05/25/24 20:34 Completed CMP [Comprehensive Metabolic Panel] Stat Lab 05/25/24 20:34 Completed Drug Screen,Urine Stat Lab 05/25/24 20:10 Ordered Diazepam Inj [Valium Inj] Med 05/25/24 20:07 Discontinued 10 mg IM X1 ONE Diazepam Inj [Valium Inj] Med 05/25/24 20:08 Discontinued 10 mg IM X1 ONE Vital Signs Vital signs: Vital Signs Temperature 98.6 F 05/25/24 19:49 Pulse Rate 130 H 05/25/24 19:49 Respiratory Rate 20 05/25/24 19:49 Blood Pressure 134/83 H 05/25/24 19:49 Pulse Oximetry (%) 98 05/25/24 19:49 Oxygen Delivery Method Room Air 05/25/24 19:49 Medical Clearance Patient data External records reviewed:: [facility] previous records Clinical information provided by:: patient and law enforcement Social determinants that could affect healthcare access:: none Patient has the following chronic illnesses:: None How is presenting disease/condition affected by chronic disease/condition?: uneffected by Evaluation data The following diagnostics were reviewed and interpreted by me:: lab results and radiology exam(s) Lab and/or radiology exams considered but not ordered:: CBC shows a mild leukocytosis of 12.7 no anemia thrombocytopenia CMP shows a potassium of 3.2 no other less significant electrolyte imbalances T. bili at 1.3 AST at 48 no other transaminitis. Patient has not given urine. CT of the head is interpreted by me shows there is motion artifact but no large atypical abnormalities require emergent or immediate intervention. Interpretation Summary: By 2142, patient is awake alert speaking nontoxic-appearing with a heart rate of 111. This time I am clearing for incarceration. Medications / Prescriptions Medications or Prescriptions considered but not ordered:: None Medication administrations:: Medication Administration History Discontinued Medications Diazepam (Diazepam Inj 5 Mg/Ml Vial 2 Ml) 10 mg IM X1 ONE Stop: 05/25/24 20:08 Last Admin: 05/25/24 20:14 Dose: 10 mg Documented By: GLENDY Diazepam (Diazepam Inj 5 Mg/Ml Vial 2 Ml) 10 mg IM X1 ONE Stop: 05/25/24 20:09 Last Admin: 05/25/24 20:18 Dose: Not Given Documented By: GLENDY Non-Admin Reason: Duplicate Medication on eMAR None Consultations Consultation(s) initiated? (list below): No Diagnosis Medical Clearance Differential Diagnosis: other (None) Most likely diagnosis given after review of the tests above:: Tachycardia dysphagia resolved Admission Indicated Admission indicated?: not indicated Explain why admission is indicated or not indicated:: Stable for prison Admission Request Was there a request for admission?: No Disposition Plan Disposition Plan: Discharge Discharge Attestation Discharge Attestation: The patient and all family members were given an opportunity to ask questions and understood the discharge instructions. Discharge instructions specifically effects, indications for sooner follow up or return to the emergency department, and the expected course of current diagnosis. Patient condition: Stable Discharge Plan Plan Patient Disposition: Correction/Court/Law Patient condition on transfer: Stable Prescriptions/Referrals Prescriptions/Med Rec: No Action amoxicillin-pot clavulanate [Augmentin] 875-125 mg tablet 1 tab PO Q12H Qty: 20 0RF ibuprofen 800 mg tablet 800 mg PO Q8H PRN (Reason: pain) Qty: 30 0RF sertraline [Zoloft] 50 mg Tablet 50 mg PO HS buspirone 10 mg tablet 10 mg PO BID Patient Comments: TAKE ONE TABLET BY MOUTH TWICE DAILY allopurinol 300 mg tablet 300 mg BID Patient Comments: TAKE ONE TABLET BY MOUTH TWICE DAILY Referrals: No Primary/Family,Physician [Primary Care Provider] - In 1 week Problem List Clinical Impression: Medical clearance for incarceration, Tachycardia Patient/Caregiver Discharge Instructions Print Language: Cambodian Stand Alone Forms: Work/School Release 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
[2024-05-25 21:44] VITALS: BP 140/90; PULSE 110; RESP 16; TEMP 36.9; O2SAT 95
--- NOTE | 2024-05-25 22:09 | PRELIM_ITS ---
CT scan of the head without intravenous contrast (axial sections with sagittal and coronal reformats). May 25, 2024 at 2114 hours Clinical History: Nonverbal, new onset. Comparison: Compared with the prior study dated May 22, 2024. Findings: No evidence of intracranial hemorrhage, mass effect or midline shift. The ventricles and CSF spaces are unremarkable. The calvarium is unremarkable. The mastoid air cells are clear. Mucosal thickening in the bilateral maxillary sinuses. Impression: No evidence of intracranial hemorrhage, mass effect or midline shift. Bilateral maxillary sinusitis. Report Electronically Signed By: Zackary Meehan 05/25/2024 10:08:05 PM [EST]
== END 2024-05-25 21:56 ==
PROVIDERS: Registered Nurse General Practice; Emergency Provider Emergency Medicine
DX: Z02.89 Encounter for other administrative examinations (principal); R00.0 Tachycardia, unspecified; D72.829 Elevated white blood cell count, unspecified; Z65.3 Problems related to other legal circumstances; Z87.891 Personal history of nicotine dependence
CPT/HCPCS: 36415; 70450; 80053; 80307; 85025; 96372; 99284; J3360

== ENCOUNTER 2024-05-26 05:59 | Emergency (ER) | payer MEDICARE, MEDICAID, SELFPAY ==
[2024-05-26 06:05] VITALS: PULSE 131; O2SAT 97
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
[2024-05-26 06:08] VITALS: BP 137/71; PULSE 117; RESP 20; TEMP 37; O2SAT 95
[2024-05-26 06:13] VITALS: BMI 26.6
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
== END 2024-05-26 06:36 | disposition left against medical advice (07) ==
LOC: SERX 06:34
PROVIDERS: Emergency Provider Emergency Medicine
DX: Z53.21 Procedure and treatment not carried out due to patient leaving prior to being seen by health care provider (principal)
CPT/HCPCS: 99281

== ENCOUNTER 2024-06-16 11:03 | Emergency (ER) | payer MEDICARE, SELFPAY ==
[2024-06-16 11:29] VITALS: BP 117/76; PULSE 89; RESP 17; TEMP 37; O2SAT 97; BMI 22.4
--- NOTE | 2024-06-16 11:29 | PD.EDANIML ---
ED Animal Bite RME/HPI General Chief Complaint: Animal Bite Stated Complaint: BIT BY YVETTE Dereck) MU-ISM X 2 WKS AGO Time Seen by Provider: 06/16/24 11:07 Arrival date/time: 06/16/24 11:03 33-year-old male with no significant medical problems presents to the emergency department for complaints of spider bite to the right pentecostalism patient for symptoms ongoing x 2 weeks patient reports no fever nausea vomiting Limitations: no limitations Related Data Home Medications ?Medication ?Instructions ?Recorded ?Confirmed sertraline 50 mg tablet (Zoloft) 50 mg PO HS 05/24/20 06/30/20 allopurinol 300 mg tablet 300 mg BID 06/30/20 06/30/20 buspirone 10 mg tablet 10 mg PO BID 06/30/20 06/30/20 Previous Rx's ?Medication ?Instructions ?Recorded amoxicillin 875 mg-potassium 1 tab PO Q12H #20 tabs 11/07/20 clavulanate 125 mg tablet (Augmentin) ibuprofen 800 mg tablet 800 mg PO Q8H PRN pain #30 tabs 11/07/20 acetaminophen 500 mg capsule 1,000 mg (2 x 500 mg) PO Q8HR PRN 06/16/24 pain #30 caps clindamycin HCl 300 mg capsule 300 mg PO TID 7 days #21 caps 06/16/24 mupirocin 2 % topical ointment 1 applic topical TID 10 days #22 06/16/24 grams Allergies Allergy/AdvReac Type Severity Reaction Status Date / Time ketorolac AdvReac Severe HEADACHE Verified 06/16/24 11:07 Review of Systems Review of Systems Systems Reviewed: All systems reviewed, normal except as documented Constitutional Constitutional: Reports system reviewed and no additional complaints, except as documented, Denies fever(s) and Denies headache(s) Eyes Eyes: Reports system reviewed and no additional complaints, except as documented and Denies blurry vision ENT Ears, Nose, Mouth, and Throat: Reports system reviewed and no additional complaints, except as documented, Denies headache(s), Denies nasal congestion and Denies nasal discharge Cardiovascular Cardiovascular: Reports system reviewed and no additional complaints, except as documented, Denies chest pain and Denies dyspnea Respiratory Respiratory: Reports system reviewed and no additional complaints, except as documented, Denies chest congestion, Denies cough and Denies dyspnea Gastrointestinal Gastrointestinal: Reports system reviewed and no additional complaints, except as documented and Denies abdominal pain Integumentary/Breasts Skin/Breast: Reports system reviewed and no additional complaints, except as documented, Denies rash and Reports other ( Spider bite right pentecostalism ) Neurologic Neurologic: Reports system reviewed and no additional complaints, except as documented, Reports as per HPI and Denies headache(s) Past Medical History Past Medical History NEUROLOGIC: Positive Neurological Disorders and Seizures; Negative Epilepsy CARDIAC: Negative Cardiac Disorders or Congestive Heart Failure RESPIRATORY: Negative Chronic Obstructive Pulmonary Disease (COPD) or Asthma GASTROINTESTINAL: Negative Gastrointestinal Disorders GENITOURINARY: Negative Genitourinary Disorders or Renal Disease MUSCULOSKELETAL: Positive Musculoskeletal Disorders, Arthritis and Gout ENT: Positive Blind ENDOCRINE: Negative Endocrine Disorders, Diabetes Mellitus Type 1 or Diabetes Mellitus Type 2 HEMATOLOGIC: Negative Blood Disorders or Sickle Cell Disease PSYCHO/SOCIAL: Positive Schizophrenia, Recreational Drug Use, Bipolar Disorder, Depression, Anxiety and Behavior Problems OTHER HISTORY: Positive Falls and MRSA; Negative Blood Transfusions Family History FAMILY HISTORY: Positive Family Cancer Social History SMOKING STATUS: Current every day smoker SUBSTANCE USE: unknown ED Exam General Limitations: Present no limitations General appearance: Present alert and in no apparent distress Head Head exam: Present atraumatic Eye Eye exam: Present normal appearance, PERRL and EOMI ENT ENT exam: Present normal exam, normal oropharynx and mucous membranes moist Neck Neck exam: Present normal inspection, full ROM and trachea midline Chest Chest inspection: Present normal inspection and symmetric chest wall rise Respiratory Respiratory exam: Present normal lung sounds bilaterally Cardiovascular Cardiovascular exam: Present regular rate, normal rhythm and normal heart sounds Abdominal Exam Abdominal exam: Present soft and normal bowel sounds Extremities Exam Extremities exam: Present normal inspection and full ROM Back Exam Back exam: Present normal inspection and full ROM Neurological Exam Neurological exam: Present alert, oriented X3, CN II-XII intact, normal gait and reflexes normal; Absent motor sensory deficit Psychiatric Psychiatric exam: Present normal affect and normal mood Skin Skin exam: Present warm, dry and other ( Spider bite right pentecostalism ) Course Quality Measures none Vital Signs Vital signs: Vital Signs Temperature 98.6 F 06/16/24 11:29 Pulse Rate 89 06/16/24 11:29 Respiratory Rate 17 06/16/24 11:29 Blood Pressure 117/76 06/16/24 11:29 Pulse Oximetry (%) 97 06/16/24 11:29 Oxygen Delivery Method Room Air 06/16/24 11:29 O2 saturation 97% room air within normal limits Animal Bite MDM Narrative MDM Narrative:: 33-year-old male with no significant medical problems presents to the emergency department for complaints of spider bite to the right pentecostalism patient for symptoms ongoing x 2 weeks patient reports no fever nausea vomiting On exam patient well-appearing patient does not appear toxic no acute distress On exam patient has what may be a spider bite to the right pentecostalism region patient be given a course of antibiotics and pain medication Patient discharged home in no distress to follow-up with primary care doctor in the next 24 to 48 hours and for any worsening symptoms to return to the ER immediately Patient data External records reviewed:: [facility] previous records Clinical information provided by:: parent Social determinants that could affect healthcare access:: none Patient has the following chronic illnesses:: None How is presenting disease/condition affected by chronic disease/condition?: no chronic disease Evaluation data The following diagnostics were reviewed and interpreted by me:: other (specify) Lab and/or radiology exams considered but not ordered:: Not ordered Interpretation Summary: Consider not ordered Medications / Prescriptions Medications or Prescriptions considered but not ordered:: Given Medication administrations:: Given Consultations Consultation(s) initiated? (list below): No Diagnosis Differential diagnosis animal bite: other Most likely diagnosis given after review of the tests above:: Insert bite Admission Indicated Admission indicated?: not indicated Admission Request Was there a request for admission?: No Disposition Plan Disposition Plan: Discharge Discharge Attestation Discharge Attestation: The patient and all family members were given an opportunity to ask questions and understood the discharge instructions. Discharge instructions specifically effects, indications for sooner follow up or return to the emergency department, and the expected course of current diagnosis. Patient condition: Stable Discharge Plan Plan Patient Disposition: HOME (Self Care) Discharge Disposition comment: Stable Prescriptions/Referrals Prescriptions/Med Rec: New clindamycin HCl 300 mg capsule 300 mg PO TID 7 Days Qty: 21 0RF mupirocin 2 % ointment 1 applic topical TID 10 Days Qty: 22 0RF acetaminophen 500 mg capsule 1,000 mg PO Q8HR PRN (Reason: pain) Qty: 30 0RF No Action amoxicillin-pot clavulanate [Augmentin] 875-125 mg tablet 1 tab PO Q12H Qty: 20 0RF ibuprofen 800 mg tablet 800 mg PO Q8H PRN (Reason: pain) Qty: 30 0RF sertraline [Zoloft] 50 mg Tablet 50 mg PO HS buspirone 10 mg tablet 10 mg PO BID Patient Comments: TAKE ONE TABLET BY MOUTH TWICE DAILY allopurinol 300 mg tablet 300 mg BID Patient Comments: TAKE ONE TABLET BY MOUTH TWICE DAILY Problem List Clinical Impression: Insect bite Patient/Caregiver Discharge Instructions Education Materials: ED Insect Bite Additional Instructions: Please follow up with your primary care doctor in the next 24-48hrs for any worsening symptoms return here immediately Print Language: Paraguayan Stand Alone Forms: [employer] Award Info., Patient Portal Info Letter PA/BRANCH GENERAL MANAGER Supervising Physician PA/BRANCH GENERAL MANAGER Supervising Physician: Dr. Rae
== END 2024-06-16 18:19 | disposition home or self-care (01) ==
PROVIDERS: Emergency Provider Emergency Medicine
DX: S00.86XA Insect bite (nonvenomous) of other part of head, initial encounter (principal); W57.XXXA Bitten or stung by nonvenomous insect and other nonvenomous arthropods, initial encounter
CPT/HCPCS: 99281

== ENCOUNTER 2024-06-19 11:33 | Emergency (ER) | payer MEDICARE, SELFPAY ==
[2024-06-19 12:21] VITALS: BP 122/84; PULSE 99; RESP 18; TEMP 36.8; O2SAT 95; BMI 23.3
--- NOTE | 2024-06-19 12:29 | PD.ADDPROG ---
Addendum Progress Note Addendum Date of report being addended: 06/19/24 Narrative: Patient was seen in a timely fashion. Patient states he would like to be seen by an MD. Dr. Edwards was made aware.
[2024-06-19] MEDS: LIDOCAINE INJ PF 1% 5 ML VIAL 10 ML IM (14:30)
[2024-06-19] MEDS: NEOMYCIN TOP (14:31)
[2024-06-19] MEDS: BACITRACIN TOP (14:31)
[2024-06-19] MEDS: POLYMYXIN B TOP (14:31)
--- NOTE | 2024-06-19 16:05 | PD.EDADULT ---
ED General RME/HPI General Chief complaint: Animal Bite Stated complaint: SPIDER BITE TO HEAD, CALF, KNEE, LWR SPINE Time Seen by Provider: 06/19/24 11:58 Arrival date/time: 06/19/24 11:33 Limitations: no limitations RME / HPI RME / HPI narrative: 33 year old male with history of seizures and gout presents to the ED for evaluation of systemic discomfort and concern for a worsening skin infection. He was seen 2 days ago and started on clindamycin and Bactroban for multiple skin abscesses, with the most symptomatic lesion located on the right oriental orthodox. He reports persistent discomfort in that area despite starting treatment. In addition, he notes discomfort behind the right knee and mentions a draining lesion on the right leg; however, the latter is not currently draining and is not his primary concern at this time. His main reason for return is persistent pain and concern related to the abscess on his right oriental orthodox. Related Data Home Medications ?Medication ?Instructions ?Recorded ?Confirmed sertraline 50 mg tablet (Zoloft) 50 mg PO HS 05/24/20 06/30/20 allopurinol 300 mg tablet 300 mg BID 06/30/20 06/30/20 buspirone 10 mg tablet 10 mg PO BID 06/30/20 06/30/20 Previous Rx's ?Medication ?Instructions ?Recorded amoxicillin 875 mg-potassium 1 tab PO Q12H #20 tabs 11/07/20 clavulanate 125 mg tablet (Augmentin) ibuprofen 800 mg tablet 800 mg PO Q8H PRN pain #30 tabs 11/07/20 acetaminophen 500 mg capsule 1,000 mg (2 x 500 mg) PO Q8HR PRN 06/16/24 pain #30 caps clindamycin HCl 300 mg capsule 300 mg PO TID 7 days #21 caps 06/16/24 mupirocin 2 % topical ointment 1 applic topical TID 10 days #22 06/16/24 grams cephalexin 500 mg capsule 500 mg PO QID infection #40 caps 06/19/24 sulfamethoxazole 800 1 tab PO BID 2 #20 tabs 06/19/24 mg-trimethoprim 160 mg tablet (Bactrim DS) Allergies Allergy/AdvReac Type Severity Reaction Status Date / Time ketorolac AdvReac Severe HEADACHE Verified 06/19/24 11:36 Review of Systems Review of Systems Narrative Review of Systems: GEN: No fever, no chills, no weight loss, +generalized discomfort EYES: No discharge, no visual changes, no pain HEENT: +right oriental orthodox abscess. No ear pain, no congestion, no sore throat PULM: No shortness of breath, no cough, no congestion CV: No chest pain, no dyspnea on exertion, no palpitations GI: No nausea, no vomiting, no diarrhea, no pain, no constipation : No frequency, no urgency, no dysuria MUSC/SKEL: No joint pain, no back pain SKIN: No rash NEURO: No weakness, no headache Past Medical History Past Medical History NEUROLOGIC: Positive Neurological Disorders and Seizures MUSCULOSKELETAL: Positive Musculoskeletal Disorders, Arthritis and Gout ENT: Positive Blind PSYCHO/SOCIAL: Positive Schizophrenia, Recreational Drug Use, Bipolar Disorder, Depression, Anxiety and Behavior Problems OTHER HISTORY: Positive Falls and MRSA Family History FAMILY HISTORY: Positive Family Cancer Social History SMOKING STATUS: Never smoker SUBSTANCE USE: unknown ED Exam General Limitations: Present no limitations General appearance: Present alert and in no apparent distress Head Head exam: Present atraumatic, normocephalic and other (right oriental orthodox has an area measuring 4cm x 3cm with erythema and edema, in the center there is an abscess measuring 1.5cm x 1 cm with 8 different loculated areas) Eye Eye exam: Present EOMI and other (Left eye chronic blindness) ENT ENT exam: Present normal exam, normal oropharynx and mucous membranes moist Neck Neck exam: Present normal inspection, full ROM and trachea midline Chest Chest inspection: Present normal inspection and symmetric chest wall rise Respiratory Respiratory exam: Present normal lung sounds bilaterally Cardiovascular Cardiovascular exam: Present regular rate, normal rhythm and normal heart sounds Abdominal Exam Abdominal exam: Present soft and normal bowel sounds Extremities Exam Extremities exam: Present full ROM and other (The right leg has an indurated area with no collection of puss) Back Exam Back exam: Present normal inspection and full ROM Neurological Exam Neurological exam: Present alert, oriented X3 and CN II-XII intact Psychiatric Psychiatric exam: Present normal affect and normal mood Skin Skin exam: Present warm, dry, intact and normal color Course Quality Measures none Orders Category Date Time Status Set Up Suture Tray NOW Care 06/19/24 12:54 Completed Lidocaine 1% Pf 5 ml [Xylocaine 1% Pf 5 ml] Med 06/19/24 12:52 Discontinued 10 ml IM X1 ONE OMA/POLY/TARI (Neosporin) OINT [Neosporin Oint] Med 06/19/24 12:52 Discontinued See Dose Instructions TOP X1 ONE Vital Signs Vital signs: Vital Signs Temperature 98.2 F 06/19/24 12:21 Pulse Rate 99 06/19/24 12:21 Respiratory Rate 18 06/19/24 12:21 Blood Pressure 122/84 06/19/24 12:21 Pulse Oximetry (%) 95 06/19/24 12:21 Oxygen Delivery Method Room Air 06/19/24 12:21 Procedures -ED Procedure Comment After appropriate sterile preparation and draping, local anesthesia was achieved with 10 cc of 1% lidocaine. A small incision was made at the superior margin of the wound. Approximately 3 cc of purulent material was expressed initially. Additional purulent drainage and some clear bleeding were noted upon further expression. The cavity was gently explored and irrigated. Abscess I/D Site: scalp (right oriental orthodox ) Side (if applicable): right Sedation/analgesia: none Local Anesthetic: lidocaine 1% Amount of anesthesia used (mL): 10 Technique: incised with #11 blade Amount of fluid expressed (mL): 3 Irrigation: Yes Packing used?: none Discharge Plan Plan Patient Disposition: Elopement Prescriptions/Referrals Prescriptions/Med Rec: New cephalexin 500 mg capsule 500 mg PO QID MDD 4 Qty: 40 0RF sulfamethoxazole-trimethoprim [Bactrim DS] 800-160 mg tablet 1 tab PO BID Qty: 20 0RF No Action amoxicillin-pot clavulanate [Augmentin] 875-125 mg tablet 1 tab PO Q12H Qty: 20 0RF ibuprofen 800 mg tablet 800 mg PO Q8H PRN (Reason: pain) Qty: 30 0RF sertraline [Zoloft] 50 mg Tablet 50 mg PO HS buspirone 10 mg tablet 10 mg PO BID Patient Comments: TAKE ONE TABLET BY MOUTH TWICE DAILY allopurinol 300 mg tablet 300 mg BID Patient Comments: TAKE ONE TABLET BY MOUTH TWICE DAILY clindamycin HCl 300 mg capsule 300 mg PO TID 7 Days Qty: 21 0RF mupirocin 2 % ointment 1 applic topical TID 10 Days Qty: 22 0RF acetaminophen 500 mg capsule 1,000 mg PO Q8HR PRN (Reason: pain) Qty: 30 0RF Referrals: No Primary/Family,Physician [Primary Care Provider] - In 1 week Problem List Clinical Impression: Abscess, Encounter for incision and drainage procedure Patient/Caregiver Discharge Instructions Education Materials: ED Abscess, Incision And Drainage Additional Instructions: Follow up with your doctor within 2-3 days for reassessment. Return if you develop any new or worsening symptoms. Print Language: Maldivian MDM Clinical Information Provided by: patient Medical Records reviewed [facility] (I reviewed ED visit on 06/16/2024 ) Meds/Rx considered, not ordered None Labs/Rad/Tests considered, not ordered None Chronic Illness/Social Conditions which may negatively complicate care or outcome(s)-explain: None or not applicable EKG EKG not done Labs Labs: none Imaging Imaging interpretation: none or see narrative above Medication Administration(s) Medication Administration History Discontinued Medications Lidocaine HCl (Lidocaine Inj Pf 1% 5 Ml Vial) 10 ml IM X1 ONE Stop: 06/19/24 12:53 Last Admin: 06/19/24 14:30 Dose: 10 ml Documented By: Neomycin/Polymyxin/Bacitracin (Oma/Poly/Tari (Neosporin) Oint 15 Gm Tube) 0 gm TOP X1 ONE Stop: 06/19/24 12:53 Last Admin: 06/19/24 14:31 Dose: 15 gm Documented By: See above Diagnosis Differential Diagnosis ED Complaint MDM: Abscess, cellulitis, generalized weakness
== END 2024-06-19 15:00 | disposition left against medical advice (07) ==
PROVIDERS: Emergency Provider Family Medicine
DX: L02.01 Cutaneous abscess of face (principal); L03.211 Cellulitis of face; R53.1 Weakness
CPT/HCPCS: 10060; 99283; J3490; A9270

== ENCOUNTER 2024-07-17 15:19 | Emergency (ER) | payer MEDICARE, SELFPAY ==
[2024-07-17 15:30] VITALS: PULSE 145; O2SAT 98; BMI 25.0
--- NOTE | 2024-07-17 15:41 | PC.NURSE ---
pt found in bathroom of local restaurant, altered, not talking, and became combative when police arrived. Police put pt in 4 point cuffs. Pt not answering any questions but does look toward staff when his name is called
[2024-07-17 15:42] VITALS: BP 151/99; PULSE 128; RESP 20; TEMP 37; O2SAT 97
--- NOTE | 2024-07-17 15:42 | PD.EDADULT ---
ED General RME/HPI General Chief complaint: Altered Mental Status Stated complaint: POSSIBLE OD Time Seen by Provider: 07/17/24 15:35 Arrival date/time: 07/17/24 15:19 RME / HPI RME / HPI narrative: DR. PAREDES MAIN ED EVALUATION: 33 year old male presents to the Emergency Department [facility] with complaint of erratic behavior and possible altered mentation. Per EMS, he was in a local restaurant and he was humping the floor. He is not answering any questions here and seems confused. No further history at this time. PMHx: Seizures, schizophrenia, bipolar disorder, arthritis, gout. Related Data Home Medications ?Medication ?Instructions ?Recorded ?Confirmed sertraline 50 mg tablet (Zoloft) 50 mg PO HS 05/24/20 06/30/20 allopurinol 300 mg tablet 300 mg BID 06/30/20 06/30/20 buspirone 10 mg tablet 10 mg PO BID 06/30/20 06/30/20 Previous Rx's ?Medication ?Instructions ?Recorded amoxicillin 875 mg-potassium 1 tab PO Q12H #20 tabs 11/07/20 clavulanate 125 mg tablet (Augmentin) ibuprofen 800 mg tablet 800 mg PO Q8H PRN pain #30 tabs 11/07/20 acetaminophen 500 mg capsule 1,000 mg (2 x 500 mg) PO Q8HR PRN 06/16/24 pain #30 caps cephalexin 500 mg capsule 500 mg PO QID infection #40 caps 06/19/24 sulfamethoxazole 800 1 tab PO BID 2 #20 tabs 06/19/24 mg-trimethoprim 160 mg tablet (Bactrim DS) Allergies Allergy/AdvReac Type Severity Reaction Status Date / Time ketorolac AdvReac Severe HEADACHE Verified 07/17/24 15:40 Review of Systems Review of Systems ROS Unobtainable: unobtainable due to mental status Past Medical History Past Medical History NEUROLOGIC: Positive Neurological Disorders and Seizures MUSCULOSKELETAL: Positive Musculoskeletal Disorders, Arthritis and Gout ENT: Positive Blind PSYCHO/SOCIAL: Positive Schizophrenia, Recreational Drug Use, Bipolar Disorder, Depression, Anxiety and Behavior Problems OTHER HISTORY: Positive Falls and MRSA Family History FAMILY HISTORY: Positive Family Cancer Social History SMOKING STATUS: Unknown if ever smoked SUBSTANCE USE: unknown ED Exam Narrative Physical exam: GENERAL APPEARANCE: Awake, malodorous, fixated to the distance; acknowledges his name, no acute distress. HEENT: NC, AT. MMM. EOMI, clear conjunctiva, oropharynx clear. NECK: Supple without lymphadenopathy. No stiffness or restricted ROM. HEART: Normal rate and regular rhythm, normal S1/S1, no m/r/g LUNGS: CTAB, moving air well. No crackles or wheezes are heard. ABDOMEN: Soft, nontender, nondistended with good bowel sounds heard. BACK: No midline C/T/L spine pain or deformity, No CVAT, no obvious deformity. EXTREMITIES: Without cyanosis, clubbing or edema. MUSCULOSKELETAL: FROM of all major joints, no chest tenderness NEUROLOGICAL: Grossly nonfocal. Alert and oriented, moving all 4 extremities. CN not formally tested but appear grossly intact. Skin: Warm and dry without any rash. Course Quality Measures none Orders Category Date Time Status Alcohol, Blood Medical Stat Lab 07/17/24 16:13 Completed CBC Stat Lab 07/17/24 16:13 Completed CMP [Comprehensive Metabolic Panel] Stat Lab 07/17/24 16:13 Completed Drug Screen,Urine Stat Lab 07/17/24 15:45 Ordered LORazepam [Ativan Inj] Med 07/17/24 15:44 Discontinued 2 mg IM X1 ONE Vital Signs Vital signs: Vital Signs Temperature 98.6 F 07/17/24 15:42 Pulse Rate 128 H 07/17/24 15:42 Respiratory Rate 20 07/17/24 15:42 Blood Pressure 151/99 H 07/17/24 15:42 Pulse Oximetry (%) 97 07/17/24 15:42 Oxygen Delivery Method Room Air 07/17/24 15:42 Discharge Plan Prescriptions/Referrals Prescriptions/Med Rec: No Action amoxicillin-pot clavulanate [Augmentin] 875-125 mg tablet 1 tab PO Q12H Qty: 20 0RF ibuprofen 800 mg tablet 800 mg PO Q8H PRN (Reason: pain) Qty: 30 0RF sertraline [Zoloft] 50 mg Tablet 50 mg PO HS buspirone 10 mg tablet 10 mg PO BID Patient Comments: TAKE ONE TABLET BY MOUTH TWICE DAILY allopurinol 300 mg tablet 300 mg BID Patient Comments: TAKE ONE TABLET BY MOUTH TWICE DAILY cephalexin 500 mg capsule 500 mg PO QID MDD 4 Qty: 40 0RF sulfamethoxazole-trimethoprim [Bactrim DS] 800-160 mg tablet 1 tab PO BID Qty: 20 0RF acetaminophen 500 mg capsule 1,000 mg PO Q8HR PRN (Reason: pain) Qty: 30 0RF Referrals: No Primary/Family,Physician [Primary Care Provider] - In 1 week Problem List Clinical Impression: Cocaine abuse, Schizophrenia, Bipolar disorder Patient/Caregiver Discharge Instructions Print Language: Thai MDM Narrative [facility] hospital course: I, Gia Servin am scribing for and in the presence of Dr. Paredes. Clinical Information Provided by EMS Medical Records Reviewed EMS Meds/Rx Considered, not Ordered None Labs/Rad/Tests considered, not Ordered None Chronic Illness/Social Conditions Add or document further as needed: Seizures, schizophrenia, bipolar disorder, arthritis, gout. Lab Interpretation Labs: interpreted by me Lab(s) interpretation(s): Cocaine abuse Medication Administration(s) Medication Administration History Discontinued Medications Lorazepam (Lorazepam 2 Mg/Ml Vial) 2 mg IM X1 ONE Stop: 07/17/24 15:45 Last Admin: 07/17/24 16:26 Dose: 2 mg Documented By: ZIA Diagnosis Differential diagnosis: Drug overdose, substance abuse, schizophrenia, bipolar disorder Most likely dx, and/or detailed dx discussion: Cocaine abuse Schizophrenia Bipolar disorder Dispositon Disposition: other Disposition comments: 1800: Patient was signed out to Dr. Buckley. Past medical, surgical, social and family history reviewed. Vitals and home medications reviewed. Results and treatment plan discussed. They will assume the care of the patient at this time and will follow the patient, metobol[facility] to [facility].
--- NOTE | 2024-07-17 15:57 | PC.LAC ---
PT REFUSED TO ANSWER QUESTIONS FROM RN. PT SEEMS CONFUSED AND DISORIENTATE. PT DID ASK RN IF HE CAN USE THE PHONE.
[2024-07-17] MEDS: LORazepam 2 MG/ML VIAL IM (16:26)
[2024-07-17 18:12] VITALS: BP 155/76; PULSE 122; RESP 17; TEMP 37.1; O2SAT 98
--- NOTE | 2024-07-17 18:12 | PD.EDADDENDU ---
Emergency Room Addendum <Kirsten Camejo - Last Filed: 07/17/24 19:49> Addendum Narrative: I took over the care from Dr. Paredes at 6 PM on 07/17/2024, see his notes for complete H&P and ED course. I was asked to take over this patient pending metabolize to freedom. I was made aware by the nurse that the patient is requesting to leave. <Nikolay Buckley MD - Last Filed: 07/17/24 20:04> Addendum Narrative: I took over the care from Dr. Paredes at 6 PM on 07/17/2024, see his notes for complete H&P and ED course. I was told the patient left AMA. Nikolay Buckley MD
--- NOTE | 2024-07-17 19:25 | PC.NURSE ---
PATIENT WANTS TO LEAVE AMA REFUSING TO SIGN FORM. PROVIDER AWARE PATIENT IS ALERT AND ORIENTED.
[2024-07-17 19:38] LABS: Amphetamine/Methamp Scrn,U Negative (Negative); Barbiturate Screen,Urine Negative (Negative); Benzodiazepines Screen,Urine Negative (Negative); Benzoylecgonine Screen, Ur Positive (Negative); Fentanyl Screen,Urine Negative (Negative); Opiate Screen,Urine Negative (Negative); THC Screen,Urine Negative (Negative)
== END 2024-07-17 19:27 | disposition left against medical advice (07) ==
PROVIDERS: Emergency Medicine; Emergency Provider Emergency Medicine
DX: F31.9 Bipolar disorder, unspecified (principal); F20.9 Schizophrenia, unspecified; F14.10 Cocaine abuse, uncomplicated; Z53.29 Procedure and treatment not carried out because of patient's decision for other reasons
CPT/HCPCS: 36415; 80053; 80307; 80320; 80329; 83735; 84439; 84443; 85025; 96372; 99283; J2060; G0480

== ENCOUNTER 2024-08-06 14:07 | Emergency (ER) | payer MEDICARE, SELFPAY ==
[2024-08-06 14:37] VITALS: BP 134/82; PULSE 94; RESP 18; TEMP 37.2; O2SAT 98; BMI 23.1
--- NOTE | 2024-08-06 14:44 | XR_ITS ---
Examination: Ultrasound soft tissue extremity left forearm TECHNIQUE: Grayscale sonographic images soft tissue forearm Date and time: August 06, 2024 1500 hours INDICATIONS: IV drug use with left forearm swelling beginning 2 days ago. FINDINGS: Heterogeneous complex mass at the area concern left forearm 3.8 x 1.9 x 2.8 cm Positive for adjacent echogenic foreign body 2.2 cm IMPRESSION: Soft tissue abscess left forearm at the area concern Recommend soft tissue left forearm films follow-up to confirm foreign body in the soft tissue
--- NOTE | 2024-08-06 14:44 | XR_ITS ---
Examination: Duplex scan of the upper extremity, unilateral left Date and time of exam: August 06, 2024 1504 hours INDICATIONS: Arm swelling and pain beginning 2 days ago, IV drug abuse history Technique: Duplex scan of the extremity veins using B-mode/grayscale imaging and Doppler spectral analysis and color flow Attention is directed to internal echogenicity, compression and augmentation involving these veins, color flow assessment, spectral analysis Findings: Major deep venous structures in the extremity demonstrate normal course and caliber. There is no evidence of deep vein thrombosis. Normal color flow and spectral analysis Impression: Negative for DVT..
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
[2024-08-06] MEDS: IBUPROFEN TAB 600 MG TABLET PO (14:57)
[2024-08-06 15:12] LABS: Lactate (Lactic Acid) 1.8 mMol/L (0.4-2.0)
[2024-08-06 15:15] LABS: Basophils % (Auto) 0 % (0-2.5); Eosinophils # (Auto) 0.1 Thou/mm3 (0.0-0.5); Eosinophils % (Auto) 1 % (0-10); Hematocrit 40.8 % (41.0-53.0); Hemoglobin 13.7 g/dL (13.5-16.0); Immature Granulocytes % (Auto) 0 % (0-0); Immature Granulocytes Auto 0.04 Thou/mm3 (0.00-0.00); Lymphocytes # (Auto) 2.3 Thou/mm3 (1.0-4.8); Lymphocytes % (Auto) 16 % (10-50); Mean Corpuscular HGB Conc 33.6 g/dl (31.0-37.0); Mean Corpuscular Hemoglobin 28.1 pg (25.0-35.0); Mean Corpuscular Volume 84 fL (80-100); Monocytes # (Auto) 0.9 Thou/mm3 (0.0-0.8); Monocytes % (Auto) 6 % (0-12); Neutrophils # (Auto) 10.8 Thou/mm3 (1.8-7.7); Neutrophils % (Auto) 76 % (37-80); Nucleated Red Blood Cell % 0 /100 WBC (0); Platelet Count 286 Thou/mm3 (140-440); RDW Standard Deviation 39.5 fL (35.1-43.9); Red Blood Count 4.88 Miln/mm3 (4.50-5.90); White Blood Count 14.2 Thou/mm3 (3.8-10.6)
[2024-08-06 15:29] LABS: Prothrombin Time 10.7 Seconds (9.0-12.2)
[2024-08-06 15:43] LABS: Alanine Aminotransferase 12 U/L (10-49); Albumin/Globulin Ratio 1.5 (1.2-2.2); Alkaline Phosphatase 113 U/L (46-116); Anion Gap 9 (7-16); Aspartate Amino Transferase 17 U/L (0-34); BUN/Creatinine Ratio 10 Ratio (12-20); Bilirubin,Total 0.7 mg/dL (0.3-1.2); Blood Urea Nitrogen 8 mg/dL (9-23); C-Reactive Protein 4.3 mg/dL (0.0-0.9); Calcium 8.8 mg/dL (8.3-10.6); Calcium (Corrected) 8.8 mg/dL (8.5-10.1); Carbon Dioxide 26.1 mMol/L (20.0-31.0); Chloride 100 mMol/L (98-107); Creatinine (Component) 0.8 mg/dL (0.6-1.3); Globulin 2.7 gm/dL (2.3-3.5); Glucose 117 mg/dL (74-106); Osmolality,Calculated 269 (275-295); Procalcitonin 0.55 ng/ml (0.0-0.49); Sodium 135 mMol/L (136-145); Total Protein 6.7 gm/dL (5.7-8.2); eGFR > 60 See Note
--- NOTE | 2024-08-06 15:46 | XR_ITS ---
Examination: Forearm, left, 2 views. Technique: Forearm, AP, lateral 2 views Date and time of exam: August 06, 2024 at 1558 hours INDICATIONS: Redness swelling and pain involving the forearm this week FINDINGS: Air density in the soft tissue palmar surface of the forearm proximally No bubba cortical bone destruction No definite opaque foreign body IMPRESSION: Soft tissue infection No definite opaque foreign body
[2024-08-06 16:11] LABS: Sed Rate (ESR) 43 mm/hr (0-15)
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
[2024-08-06] MEDS: HYDROcodone/APAP 10/325 TAB PO (18:43)
[2024-08-06] MEDS: LIDOCAINE HCL 1% 20 ML VIAL INFL (18:43)
[2024-08-06] MEDS: CLINDAMYCIN 150 MG CAPSULE 300 MG PO (18:44)
== END 2024-08-06 19:39 | disposition home or self-care (01) ==
PROVIDERS: Nurse Practitioner Primary Care; Emergency Provider Emergency Medicine
DX: L02.414 Cutaneous abscess of left upper limb (principal); F19.90 Other psychoactive substance use, unspecified, uncomplicated
CPT/HCPCS: 10060; 36415; 73090; 76705; 80053; 83605; 84145; 85025; 85610; 85652; 86140; 87040; 93971; 99284; J3490; A9270

== ENCOUNTER 2024-08-15 23:07 | Emergency (ER) | payer MEDICARE, MEDICAID, SELFPAY ==
[2024-08-15 23:08] VITALS: BMI 24.3
[2024-08-15 23:14] VITALS: BP 121/66; PULSE 86; RESP 20; TEMP 37.4; O2SAT 97
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
[2024-08-16] MEDS: HYDROcodone/APAP 5/325 TABLET 1 TAB PO (03:02)
== END 2024-08-16 03:17 | disposition home or self-care (01) ==
PROVIDERS: Emergency Provider Emergency Medicine
DX: S13.4XXA Sprain of ligaments of cervical spine, initial encounter (principal); S83.92XA Sprain of unspecified site of left knee, initial encounter; S83.91XA Sprain of unspecified site of right knee, initial encounter; S00.03XA Contusion of scalp, initial encounter; S20.219A Contusion of unspecified front wall of thorax, initial encounter; S00.81XA Abrasion of other part of head, initial encounter; S40.812A Abrasion of left upper arm, initial encounter; S40.811A Abrasion of right upper arm, initial encounter; S60.512A Abrasion of left hand, initial encounter; S60.511A Abrasion of right hand, initial encounter
CPT/HCPCS: 70450; 70486; 71110; 72125; 99284; A9270

== ENCOUNTER 2024-08-17 19:04 | Emergency (ER) | payer MEDICARE, MEDICAID, SELFPAY ==
--- NOTE | 2024-08-17 19:07 | XR_ITS ---
Examination: CT chest with intravenous contrast CT abdomen with intravenous contrast CT pelvis with intravenous contrast 2-D coronal and sagittal reconstructions Time of exam: August 17, 2024 at 2155 CTDI: vol (mGy) : 8.53 DLP: (mGycm): 630 Technique: Multiple axial images of the chest, abdomen and pelvis with intravenous contrast, 3.0 mm slice thickness. Images obtained post intravenous injection Isovue 370 60 cc. 2-D sagittal and coronal reconstructions. Low dose protocols were performed. One or more of the following dose reduction techniques were used; automated exposure control, adjustment of the mA and/or KV according to patient size, use of iterative reconstruction technique. Findings: Thoracic aorta pulmonary arteries intact No hemopericardium No pneumothorax pulmonary contusion or hemothorax Manubrium thoracic vertebral bodies and ribs appear intact No liver splenic or renal laceration Aorta intact no free blood in the abdomen Normal appendix Negative for pneumoperitoneum Urinary bladder are intact Lumbar vertebral bodies sacral segments bones of the pelvis and hips intact IMPRESSION: Thoracic aorta pulmonary arteries intact No hemopericardium, pneumothorax or pulmonary contusion or hemothorax No abdominal parenchymal laceration Abdominal aorta intact No free fluid in the abdomen or pelvis
--- NOTE | 2024-08-17 19:07 | EKG_ITS ---
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
[2024-08-17 19:19] VITALS: PULSE 82; RESP 34; O2SAT 100
[2024-08-17 19:21] VITALS: BMI 26.4
--- NOTE | 2024-08-17 19:21 | XR_ITS ---
Examination: CT maxillofacial, without intravenous contrast. 2-D sagittal reconstructions. 3-D reconstructions. Date and time of exam:August 17, 2024 2151 hours INDICATIONS: Injury to the face today, facial pain CTDI: vol (mGy):16.7 DLP: (mGycm):309 Technique: Multiple axial images of maxillofacial region, 3.0 mm slice thickness. 2-D sagittal and coronal reconstructions. 3-D reconstructions. Low dose protocols were performed. One or more of the following dose reduction techniques were used; automated exposure control, adjustment of the mA and/or KV according to patient size, use of iterative reconstruction technique. Findings: No nasal bone fracture (Frontal bone is intact. Orbits are intact No fracture of the maxilla or mandible IMPRESSION: No acute facial fracture .
[2024-08-17 19:23] VITALS: BP 144/75; PULSE 152; RESP 20; TEMP 36.9; O2SAT 95
[2024-08-17] MEDS: OLANZapine INJ 10 MG, Sterile Water 2.1 ML IM (19:43)
[2024-08-17] MEDS: DIPHTH,PERTUSS(ACELL),TET VAC 0.5 ML SYR- ADULT IMi (19:43)
[2024-08-17] MEDS: ceFAZolin/D5W 2 GM IV 2 GM/100 ML BAG IV (19:48)
[2024-08-17 20:00] LABS: Basophils # (Auto) 0.1 Thou/mm3 (0.0-0.2); Basophils % (Auto) 0 % (0-2.5); Eosinophils # (Auto) 0.1 Thou/mm3 (0.0-0.5); Eosinophils % (Auto) 0 % (0-10); Hematocrit 38.2 % (41.0-53.0); Hemoglobin 13.1 g/dL (13.5-16.0); Immature Granulocytes Auto 0.09 Thou/mm3 (0.00-0.00); Lymphocytes # (Auto) 0.9 Thou/mm3 (1.0-4.8); Lymphocytes % (Auto) 4 % (10-50); Mean Corpuscular HGB Conc 34.3 g/dl (31.0-37.0); Mean Corpuscular Hemoglobin 28.5 pg (25.0-35.0); Mean Corpuscular Volume 83 fL (80-100); Monocytes # (Auto) 0.6 Thou/mm3 (0.0-0.8); Monocytes % (Auto) 3 % (0-12); Neutrophils # (Auto) 19.4 Thou/mm3 (1.8-7.7); Neutrophils % (Auto) 92 % (37-80); Nucleated Red Blood Cell # 0.00 Thou/mm3 (0.00-0.00); Nucleated Red Blood Cell % 0 /100 WBC (0); Platelet Count 489 Thou/mm3 (140-440); RDW Standard Deviation 39.5 fL (35.1-43.9); Red Blood Count 4.59 Miln/mm3 (4.50-5.90); White Blood Count 21.2 Thou/mm3 (3.8-10.6)
[2024-08-17 20:26] LABS: Alanine Aminotransferase 19 U/L (10-49); Albumin, Serum 4.3 gm/dL (3.5-5.0); Albumin/Globulin Ratio 1.5 (1.2-2.2); Alcohol, Blood Medical < 3.0 mg/dL (0-10.0); Alkaline Phosphatase 107 U/L (46-116); Anion Gap 18 (7-16); Aspartate Amino Transferase 19 U/L (0-34); BUN/Creatinine Ratio 6 Ratio (12-20); Bilirubin,Total 0.7 mg/dL (0.3-1.2); Blood Urea Nitrogen 7 mg/dL (9-23); Calcium 9.7 mg/dL (8.3-10.6); Calcium (Corrected) 9.7 mg/dL (8.5-10.1); Carbon Dioxide 19.4 mMol/L (20.0-31.0); Chloride 103 mMol/L (98-107); Creatinine (Component) 1.2 mg/dL (0.6-1.3); Estimated Creatinine Clearance 71.0 mL/min (>60); Globulin 2.9 gm/dL (2.3-3.5); Glucose 240 mg/dL (74-106); Lipase 32 U/L (12-53); Osmolality,Calculated 285 (275-295); Potassium 3.5 mMol/L (3.4-5.1); Sodium 140 mMol/L (136-145); Total Protein 7.2 gm/dL (5.7-8.2); Troponin I < 0.002 ng/mL (0.0-0.045); eGFR > 60 See Note
[2024-08-17] MEDS: SODIUM CHLORIDE 0.9% 1000 ML 1,000 ML 999 ML IV (20:45)
--- NOTE | 2024-08-17 20:45 | XR_ITS ---
Examination: CT right forearm, without contrast. 2-D sagittal reconstructions. 2-D coronal reconstructions. 3-D reconstructions. Date and time of exam:August 17, 2024 and 0 3:00 PM INDICATIONS: Injury to the forearm today, forearm pain CTDI: vol (mGy):48 DLP: (mGycm):Early distal humerus intact Ulna and radius intact as well as visualized carpal bones and metacarpals Soft tissue mass which is anterior to the elbow, 37 x 32 x 39 mm extending the skin surface Technique: Multiple 1.25 mm axial sections of the right forearm have been obtained. 2-D sagittal and coronal reconstructions have been obtained. 3-D reconstructions have been obtained. Low dose protocols were performed. One or more of the following dose reduction techniques were used; automated exposure control, adjustment of the mA and/or KV according to patient size, use of iterative reconstruction technique. Findings: No fracture or dislocation, no foreign body Partially cystic mass antecubital fossa 37 x 32 x 39 mm extending to the skin surface IMPRESSION: Soft tissue abscess antecubital fossa
[2024-08-17 21:04] VITALS: BP 138/93; PULSE 100; RESP 18; TEMP 37.1; O2SAT 98
[2024-08-17] MEDS: DOXYCYCLINE INJ 100 MG in SODIUM CHLORIDE 0.9% (POP) 100 ML IV (21:17)
[2024-08-17 21:26] LABS: Lactate (Lactic Acid) 2.9 mMol/L (0.4-2.0)
[2024-08-17 22:09] LABS: Amphetamine/Methamp Scrn,U Negative (Negative); Barbiturate Screen,Urine Negative (Negative); Benzodiazepines Screen,Urine Negative (Negative); Benzoylecgonine Screen, Ur Positive (Negative); Fentanyl Screen,Urine Negative (Negative); Opiate Screen,Urine Negative (Negative); THC Screen,Urine Negative (Negative)
[2024-08-17] MEDS: MORPHINE SULF INJ 10 MG/ML VIAL 4 MG IVP (23:06)
[2024-08-17 23:27] LABS: Lactate (Lactic Acid) 1.1 mMol/L (0.4-2.0)
[2024-08-18 00:04] VITALS: BP 138/67; PULSE 78; RESP 18; TEMP 36.7; O2SAT 98
[2024-08-18 00:23] LABS: Reflex Lactate? Y
== END 2024-08-18 00:09 ==
PROVIDERS: Physician Assistant Medical; Emergency Provider Emergency Medicine
DX: L02.413 Cutaneous abscess of right upper limb (principal); S00.01XA Abrasion of scalp, initial encounter; F20.9 Schizophrenia, unspecified; S50.312A Abrasion of left elbow, initial encounter; S50.311A Abrasion of right elbow, initial encounter; S80.212A Abrasion, left knee, initial encounter; S80.211A Abrasion, right knee, initial encounter; S40.212A Abrasion of left shoulder, initial encounter; S40.211A Abrasion of right shoulder, initial encounter; S99.922A Unspecified injury of left foot, initial encounter; S99.921A Unspecified injury of right foot, initial encounter; S09.90XA Unspecified injury of head, initial encounter; V03.90XA Pedestrian on foot injured in collision with car, pick-up truck or van, unspecified whether traffic or nontraffic accident, initial encounter; R94.31 Abnormal electrocardiogram [ECG] [EKG]; Z23 Encounter for immunization; D72.829 Elevated white blood cell count, unspecified; E87.20 Acidosis, unspecified; F19.10 Other psychoactive substance abuse, uncomplicated
CPT/HCPCS: 10060; 36415; 70450; 70486; 71260; 72125; 73080; 73110; 73130; 73201; 73562; 73630; 74177; 80053; 80307; 80320; 83605; 83690; 84484; 85025; 87040; 87070; 87205; 90471; 90715; 93005; 96361; 96365; 96367; 96375; 99284; A4216; A4649; J0689; J2270; J2358; J3490; J7030; Q9967; G0480; J2359

== ENCOUNTER 2024-10-18 23:36 | Emergency (ER) | payer MEDICARE, MEDICAID, SELFPAY ==
[2024-10-18 23:40] VITALS: BP 152/109; BP 170/105; PULSE 147; RESP 18; TEMP 37; O2SAT 96; BMI 24.0
--- NOTE | 2024-10-19 00:04 | PD.EDMEDCL ---
ED Medical Clearance RME/HPI General Chief complaint: Medical Clearance Stated complaint: MEDICAL CLEARANCE Time Seen by Provider: 10/19/24 00:00 Source: EMS Arrival date/time: 10/18/24 23:36 Mode of arrival: ambulatory (police) RME / HPI RME / HPI Narrative: Dr. Traore?s Main ED Evaluation: History obtained from law enforcement, as patient is non-verbal on arrival and does not participate in interview or answer questions. Patient is a 34-year-old male with a known past medical history significant for seizure disorder, arthritis, gout, anxiety, depression, schizophrenia, and bipolar disorder. He also has a documented history of cocaine use. He was brought to the ED for medical clearance after being noted to have elevated heart rate and blood pressure while in custody. No additional subjective information is available from the patient due to non-verbal status. Similar presentation to previous medical clearances in the past. Completed HPI is limited. MD complaint: medical clearance requested Related Information Home Medications ?Medication ?Instructions ?Recorded ?Confirmed sertraline 50 mg tablet (Zoloft) 50 mg PO HS 05/24/20 06/30/20 allopurinol 300 mg tablet 300 mg BID 06/30/20 06/30/20 buspirone 10 mg tablet 10 mg PO BID 06/30/20 06/30/20 Previous Rx's ?Medication ?Instructions ?Recorded amoxicillin 875 mg-potassium 1 tab PO Q12H #20 tabs 11/07/20 clavulanate 125 mg tablet (Augmentin) ibuprofen 800 mg tablet 800 mg PO Q8H PRN pain #30 tabs 11/07/20 acetaminophen 500 mg capsule 1,000 mg (2 x 500 mg) PO Q8HR PRN 06/16/24 pain #30 caps cephalexin 500 mg capsule 500 mg PO QID infection #40 caps 06/19/24 sulfamethoxazole 800 1 tab PO BID 2 #20 tabs 06/19/24 mg-trimethoprim 160 mg tablet (Bactrim DS) clindamycin HCl 300 mg capsule 300 mg PO Q6H #28 caps 08/06/24 ibuprofen 800 mg tablet 800 mg PO Q8H PRN pain #30 tabs 08/06/24 hydrocodone 5 mg-acetaminophen 325 1 tab PO Q6H PRN pain #10 tabs 08/16/24 mg tablet mupirocin 2 % topical ointment 1 applic topical TID #22 grams 08/16/24 doxycycline hyclate 100 mg tablet 100 mg PO BID #14 tabs 08/17/24 Allergies Allergy/AdvReac Type Severity Reaction Status Date / Time ketorolac AdvReac Severe HEADACHE Verified 08/17/24 19:18 Review of Systems Review of Systems Systems Reviewed: All systems reviewed, normal except as documented Past Medical History Past Medical History NEUROLOGIC: Positive Neurological Disorders and Seizures; Negative Epilepsy CARDIAC: Negative Cardiac Disorders or Congestive Heart Failure RESPIRATORY: Negative Chronic Obstructive Pulmonary Disease (COPD) or Asthma GASTROINTESTINAL: Negative Gastrointestinal Disorders GENITOURINARY: Negative Genitourinary Disorders or Renal Disease MUSCULOSKELETAL: Positive Musculoskeletal Disorders, Arthritis and Gout ENT: Positive Blind ENDOCRINE: Negative Endocrine Disorders, Diabetes Mellitus Type 1 or Diabetes Mellitus Type 2 HEMATOLOGIC: Negative Blood Disorders or Sickle Cell Disease PSYCHO/SOCIAL: Positive Schizophrenia, Recreational Drug Use, Bipolar Disorder, Depression, Anxiety and Behavior Problems OTHER HISTORY: Positive Falls and MRSA; Negative Blood Transfusions Family History FAMILY HISTORY: Positive Family Cancer Social History SMOKING STATUS: Unknown if ever smoked SUBSTANCE USE: unknown ED Exam Narrative Physical exam: Generally the patient is alert and in no obvious distress choosing to be nonverbal, head is normocephalic atraumatic, eyes pupils equal round reactive to light, heart tachycardic rate with regular rhythm, lungs clear to auscultation equal bilaterally, abdomen soft bowel sounds present nondistended nontender, skin is warm pale and dry, neurologic exam patient is choosing to be nonverbal. He is ambulatory. No focal motor deficits. Course Quality Measures none Orders Category Date Time Status EKG (ED ONLY) *Do not use* NOW Care 10/19/24 00:07 Completed EKG (ED Only) Stat Exams 10/19/24 00:07 Draft Drug Screen,Urine Stat Lab 10/19/24 00:07 Ordered LORazepam [Ativan] Med 10/19/24 00:07 Discontinued 2 mg PO X1 ONE Metoprolol Tartrate [Lopressor] Med 10/19/24 00:07 Discontinued 50 mg PO X1 ONE Vital Signs Vital signs: Vital Signs Temperature 98.6 F 10/18/24 23:40 Pulse Rate 147 H 10/18/24 23:40 Respiratory Rate 18 10/18/24 23:40 Blood Pressure 170/105 H 10/18/24 23:40 Pulse Oximetry (%) 96 10/18/24 23:40 Oxygen Delivery Method Room Air 10/18/24 23:40 Medical Clearance [facility] Narrative [facility] Narrative:: Scribe Attestation: I, Latanya Mcfaddenang, am scribing for and in the presence of Dr. Traore. Provider Notation: Although this document has been carefully reviewed, there may still be some phonetic and other typographical errors. These errors are purely grammatical due to imperfections in the software program and should not be construed in any way to compromise the substance of the patient's medical care during this visit. Patient is hypertensive and tachycardic. EKG shows sinus tachycardia at a rate of 141 without ischemic change. Patient received Ativan 2 mg p.o. and metoprolol 50 mg p.o. which helped decrease the blood pressure 173/95 and heart rate 133. Patient remained in stable condition throughout the entire ER stay. He would not give a urine sample for urinary tox screen however I did see in the computer that the patient was positive for cocaine in August of this year. Patient will be medically clear for his fpc facility. Patient data External records reviewed:: [facility] previous records Clinical information provided by:: law enforcement Social determinants that could affect healthcare access:: substance use Patient has the following chronic illnesses:: seizure disorder, arthritis, gout, anxiety, depression, schizophrenia, and bipolar disorder How is presenting disease/condition affected by chronic disease/condition?: uneffected by Evaluation data The following diagnostics were reviewed and interpreted by me:: EKG tracing(s) Lab and/or radiology exams considered but not ordered:: na Interpretation Summary: Refer to [facility] Medications / Prescriptions Medications or Prescriptions considered but not ordered:: na Medication administrations:: Medication Administration History Discontinued Medications Lorazepam (Lorazepam 0.5 Mg Tablet) 2 mg PO X1 ONE Stop: 10/19/24 00:08 Last Admin: 10/19/24 00:50 Dose: 2 mg Documented By: BD Metoprolol Tartrate (Metoprolol Tartrate 25 Mg Tablet) 50 mg PO X1 ONE Stop: 10/19/24 00:08 Last Admin: 10/19/24 00:50 Dose: 50 mg Documented By: GLENDY na Consultations Consultation(s) initiated? (list below): No Diagnosis Medical Clearance Differential Diagnosis: other Most likely diagnosis given after review of the tests above:: See clinical impression below. Admission Indicated Admission indicated?: not indicated Admission Request Was there a request for admission?: No Disposition Plan Disposition Plan: Discharge Discharge Attestation Discharge Attestation: The patient and all family members were given an opportunity to ask questions and understood the discharge instructions. Discharge instructions specifically effects, indications for sooner follow up or return to the emergency department, and the expected course of current diagnosis. Patient condition: Stable Discharge Plan Plan Patient Disposition: Prison/Court/Law Prescriptions/Referrals Prescriptions/Med Rec: No Action amoxicillin-pot clavulanate [Augmentin] 875-125 mg tablet 1 tab PO Q12H Qty: 20 0RF ibuprofen 800 mg tablet 800 mg PO Q8H PRN (Reason: pain) Qty: 30 0RF sertraline [Zoloft] 50 mg Tablet 50 mg PO HS buspirone 10 mg tablet 10 mg PO BID Patient Comments: TAKE ONE TABLET BY MOUTH TWICE DAILY allopurinol 300 mg tablet 300 mg BID Patient Comments: TAKE ONE TABLET BY MOUTH TWICE DAILY cephalexin 500 mg capsule 500 mg PO QID MDD 4 Qty: 40 0RF sulfamethoxazole-trimethoprim [Bactrim DS] 800-160 mg tablet 1 tab PO BID Qty: 20 0RF mupirocin 2 % ointment 1 applic topical TID Qty: 22 0RF hydrocodone-acetaminophen 5-325 mg tablet 1 tab PO Q6H MDD max 4 tabs per day PRN (Reason: pain) Qty: 10 0RF doxycycline hyclate 100 mg tablet 100 mg PO BID Qty: 14 0RF acetaminophen 500 mg capsule 1,000 mg PO Q8HR PRN (Reason: pain) Qty: 30 0RF clindamycin HCl 300 mg capsule 300 mg PO Q6H Qty: 28 0RF ibuprofen 800 mg tablet 800 mg PO Q8H PRN (Reason: pain) Qty: 30 0RF Referrals: No Primary/Family,Physician [Primary Care Provider] - In 1 week Problem List Clinical Impression: Hypertension, Tachycardia Patient/Caregiver Discharge Instructions Education Materials: ED Hypertension, Established Additional Instructions: Patient is stable for fpc facility. He is most likely hypertensive and tachycardia due to substance abuse. Print Language: Mongolian
--- NOTE | 2024-10-19 00:07 | EKG_ITS ---
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
[2024-10-19 00:50] VITALS: BP 143/114; PULSE 138
[2024-10-19] MEDS: METOPROLOL TARTRATE 25 MG TABLET 50 MG PO (00:50)
[2024-10-19 01:23] VITALS: BP 171/96; PULSE 130
== END 2024-10-19 01:40 ==
PROVIDERS: Emergency Provider Emergency Medicine
DX: Z02.89 Encounter for other administrative examinations (principal); I10 Essential (primary) hypertension; R00.0 Tachycardia, unspecified; R56.9 Unspecified convulsions; M19.90 Unspecified osteoarthritis, unspecified site; M10.9 Gout, unspecified; F41.9 Anxiety disorder, unspecified; F20.9 Schizophrenia, unspecified; F31.9 Bipolar disorder, unspecified
CPT/HCPCS: 80307; 93005; 99283; A9270

== ENCOUNTER 2024-10-30 09:45 | Emergency (ER) | payer MEDICARE, MEDICAID, SELFPAY ==
[2024-10-30 10:07] VITALS: BP 127/84; PULSE 104; RESP 18; TEMP 37.6; O2SAT 95
--- NOTE | 2024-10-30 10:19 | XR_ITS ---
Examination: PA lateral chest 2 views TECHNIQUE: Upright PA lateral chest 2 views Date and time: October 30, 2024 1024 hours INDICATIONS: Coughing 4 days. FINDINGS: Normal heart size. Lungs are clear. The osseous structures are intact IMPRESSION: No active disease.
--- NOTE | 2024-10-30 11:14 | PD.EDURI ---
Upper Respiratory Inf. RME/HPI General Chief Complaint: Flu Like Symptoms Stated Complaint: COUGH, CONGESTION, FEVER, SWEATS, CHILLS Time Seen by Provider: 10/30/24 09:47 Arrival date/time: 10/30/24 09:45 34-year-old male presents to the Emergency Department for complaint of cough, congestion generalized bodyaches ongoing for last couple of days Limitations: no limitations Related Data Home Medications ?Medication ?Instructions ?Recorded ?Confirmed sertraline 50 mg tablet (Zoloft) 50 mg PO HS 05/24/20 06/30/20 allopurinol 300 mg tablet 300 mg BID 06/30/20 06/30/20 buspirone 10 mg tablet 10 mg PO BID 06/30/20 06/30/20 Previous Rx's ?Medication ?Instructions ?Recorded amoxicillin 875 mg-potassium 1 tab PO Q12H #20 tabs 11/07/20 clavulanate 125 mg tablet (Augmentin) ibuprofen 800 mg tablet 800 mg PO Q8H PRN pain #30 tabs 11/07/20 acetaminophen 500 mg capsule 1,000 mg (2 x 500 mg) PO Q8HR PRN 06/16/24 pain #30 caps cephalexin 500 mg capsule 500 mg PO QID infection #40 caps 06/19/24 sulfamethoxazole 800 1 tab PO BID 2 #20 tabs 06/19/24 mg-trimethoprim 160 mg tablet (Bactrim DS) clindamycin HCl 300 mg capsule 300 mg PO Q6H #28 caps 08/06/24 ibuprofen 800 mg tablet 800 mg PO Q8H PRN pain #30 tabs 08/06/24 hydrocodone 5 mg-acetaminophen 325 1 tab PO Q6H PRN pain #10 tabs 08/16/24 mg tablet mupirocin 2 % topical ointment 1 applic topical TID #22 grams 08/16/24 doxycycline hyclate 100 mg tablet 100 mg PO BID #14 tabs 08/17/24 benzonatate 100 mg capsule 100 mg PO TID #14 caps 10/30/24 ibuprofen 600 mg tablet 600 mg PO Q6H #30 tabs 10/30/24 prednisone 20 mg tablet 20 mg PO BID 3 days #6 tabs 10/30/24 Allergies Allergy/AdvReac Type Severity Reaction Status Date / Time ketorolac AdvReac Severe HEADACHE Verified 08/17/24 19:18 Review of Systems Review of Systems Systems Reviewed: All systems reviewed, normal except as documented Constitutional Constitutional: Reports system reviewed and no additional complaints, except as documented, Denies fever(s) and Denies headache(s) Eyes Eyes: Reports system reviewed and no additional complaints, except as documented and Denies blurry vision ENT Ears, Nose, Mouth, and Throat: Reports system reviewed and no additional complaints, except as documented, Denies headache(s), Denies nasal congestion and Denies nasal discharge Cardiovascular Cardiovascular: Reports system reviewed and no additional complaints, except as documented, Denies chest pain and Denies dyspnea Respiratory Respiratory: Reports system reviewed and no additional complaints, except as documented, Reports chest congestion, Reports cough and Denies dyspnea Gastrointestinal Gastrointestinal: Reports system reviewed and no additional complaints, except as documented and Denies abdominal pain Integumentary/Breasts Skin/Breast: Reports system reviewed and no additional complaints, except as documented and Denies rash Neurologic Neurologic: Reports system reviewed and no additional complaints, except as documented, Reports as per HPI and Denies headache(s) Past Medical History Past Medical History NEUROLOGIC: Positive Neurological Disorders and Seizures; Negative Epilepsy CARDIAC: Negative Cardiac Disorders or Congestive Heart Failure RESPIRATORY: Negative Chronic Obstructive Pulmonary Disease (COPD) or Asthma GASTROINTESTINAL: Negative Gastrointestinal Disorders GENITOURINARY: Negative Genitourinary Disorders or Renal Disease MUSCULOSKELETAL: Positive Musculoskeletal Disorders, Arthritis and Gout ENT: Positive Blind ENDOCRINE: Negative Endocrine Disorders, Diabetes Mellitus Type 1 or Diabetes Mellitus Type 2 HEMATOLOGIC: Negative Blood Disorders or Sickle Cell Disease PSYCHO/SOCIAL: Positive Schizophrenia, Recreational Drug Use, Bipolar Disorder, Depression, Anxiety and Behavior Problems OTHER HISTORY: Positive Falls and MRSA; Negative Blood Transfusions Family History FAMILY HISTORY: Positive Family Cancer Social History SMOKING STATUS: Never smoker SUBSTANCE USE: unknown ED Exam General Limitations: Present no limitations General appearance: Present alert and in no apparent distress Head Head exam: Present atraumatic, normocephalic and normal inspection Eye Eye exam: Present normal appearance, PERRL and EOMI; Absent conjunctival injection ENT ENT exam: Present normal exam, normal oropharynx and mucous membranes moist Neck Neck exam: Present normal inspection, full ROM and trachea midline Chest Chest inspection: Present normal inspection and symmetric chest wall rise Respiratory Respiratory exam: Present normal lung sounds bilaterally; Absent respiratory distress Cardiovascular Cardiovascular exam: Present regular rate, normal rhythm and normal heart sounds Abdominal Exam Abdominal exam: Present soft and normal bowel sounds Extremities Exam Extremities exam: Present normal inspection and full ROM Back Exam Back exam: Present normal inspection and full ROM Neurological Exam Neurological exam: Present alert, oriented X3 and CN II-XII intact Psychiatric Psychiatric exam: Present normal affect and normal mood Skin Skin exam: Present warm, dry, intact and normal color Course Quality Measures none Orders Category Date Time Status Bedside COVID-19 Antigen Test NOW Care 10/30/24 10:19 Completed Bedside Influenza A&B Antigen Test NOW Care 10/30/24 10:19 Completed XR chest 2V Stat Exams 10/30/24 10:19 Completed Vital Signs Vital signs: Vital Signs Temperature 99.6 F 10/30/24 10:07 Pulse Rate 104 H 10/30/24 10:07 Respiratory Rate 18 10/30/24 10:07 Blood Pressure 127/84 10/30/24 10:07 Pulse Oximetry (%) 95 10/30/24 10:07 Oxygen Delivery Method Room Air 10/30/24 10:07 O2 saturation 95% room air within normal limits Upper Respiratory Infection MDM Narrative MDM Narrative:: 34-year-old male presents to the Emergency Department for complaint of cough, congestion generalized bodyaches ongoing for last couple of days On exam patient well-appearing patient does not appear ill or toxic no distress Patient checked for flu and COVID both which were negative Chest x-ray obtained no acute pneumonic infiltrates noted Patient discharged home in no distress to follow-up with primary care doctor in the next 24 to 48 hours and for any worsening symptoms to return to the ER immediately Patient data External records reviewed:: [facility] previous records Clinical information provided by:: patient Social determinants that could affect healthcare access:: none Patient has the following chronic illnesses:: None How is presenting disease/condition affected by chronic disease/condition?: no chronic disease Evaluation data The following diagnostics were reviewed and interpreted by me:: lab results and radiology exam(s) Lab and/or radiology exams considered but not ordered:: Labs radiology obtained Interpretation Summary: Reviewed by me Medications / Prescriptions Medications or Prescriptions considered but not ordered:: Given Medication administrations:: Given Consultations Consultation(s) initiated? (list below): No Diagnosis Upper Respiratory Differential Diagnosis: upper respiratory infection, croup, otitis media, sinusitis, viral infection and bronchitis Most likely diagnosis given after review of the tests above:: URI Admission Indicated Admission indicated?: not indicated Admission Request Was there a request for admission?: No Disposition Plan Disposition Plan: Discharge Discharge Attestation Discharge Attestation: The patient and all family members were given an opportunity to ask questions and understood the discharge instructions. Discharge instructions specifically effects, indications for sooner follow up or return to the emergency department, and the expected course of current diagnosis. Patient condition: Stable Discharge Plan Plan Patient Disposition: HOME (Self Care) Discharge Disposition comment: Stable Prescriptions/Referrals Prescriptions/Med Rec: New benzonatate 100 mg capsule 100 mg PO TID Qty: 14 0RF prednisone 20 mg tablet 20 mg PO BID 3 Days Qty: 6 0RF ibuprofen 600 mg tablet 600 mg PO Q6H Qty: 30 0RF No Action amoxicillin-pot clavulanate [Augmentin] 875-125 mg tablet 1 tab PO Q12H Qty: 20 0RF ibuprofen 800 mg tablet 800 mg PO Q8H PRN (Reason: pain) Qty: 30 0RF sertraline [Zoloft] 50 mg Tablet 50 mg PO HS buspirone 10 mg tablet 10 mg PO BID Patient Comments: TAKE ONE TABLET BY MOUTH TWICE DAILY allopurinol 300 mg tablet 300 mg BID Patient Comments: TAKE ONE TABLET BY MOUTH TWICE DAILY cephalexin 500 mg capsule 500 mg PO QID MDD 4 Qty: 40 0RF sulfamethoxazole-trimethoprim [Bactrim DS] 800-160 mg tablet 1 tab PO BID Qty: 20 0RF mupirocin 2 % ointment 1 applic topical TID Qty: 22 0RF hydrocodone-acetaminophen 5-325 mg tablet 1 tab PO Q6H MDD max 4 tabs per day PRN (Reason: pain) Qty: 10 0RF doxycycline hyclate 100 mg tablet 100 mg PO BID Qty: 14 0RF acetaminophen 500 mg capsule 1,000 mg PO Q8HR PRN (Reason: pain) Qty: 30 0RF clindamycin HCl 300 mg capsule 300 mg PO Q6H Qty: 28 0RF ibuprofen 800 mg tablet 800 mg PO Q8H PRN (Reason: pain) Qty: 30 0RF Referrals: Kg Hansen MD [Primary Care Provider, Family Practice] - In 1 week Problem List Clinical Impression: Abdominal pain Patient/Caregiver Discharge Instructions Education Materials: Abdominal Pain Additional Instructions: Please follow up with your primary care doctor in the next 24-48hrs for any worsening symptoms return here immediately Print Language: Colombian Stand Alone Forms: Iv[employer] Award Info., Patient Portal Info Letter PA/FLOOR INSTALLER Supervising Physician PA/FLOOR INSTALLER Supervising Physician: dr alarcon
== END 2024-10-30 12:43 | disposition home or self-care (01) ==
PROVIDERS: Emergency Provider Family Medicine; PCP Family Medicine
DX: R10.9 Unspecified abdominal pain (principal); R05.9 Cough, unspecified
CPT/HCPCS: 71046; 87400; 87811; 99283